=== PATIENT | male | born 1940 | race Caucasian/White ===

== ENCOUNTER 2016-11-10 11:01 | Outpatient (CLI) | payer MEDICARE, BC ==
[2016-11-10 11:42] LABS: ALBUMIN/GLOBULIN RATIO 1.5 (1.0-2.2); BUN - BLOOD UREA NITROGEN 22 mg/dL (6-20); CALCIUM 9.2 mg/dL (8.5-10.3); CARBON DIOXIDE - CO2 29 mmol/L (21-32); CHLORIDE 100 mmol/L (101-111); CHOLESTEROL 156 mg/dL; CREATININE 1.2 mg/dL (0.6-1.2); GFR - MDRD 59 (>89); GLUCOSE 106 mg/dL (70-100); HDL CHOLESTEROL 39 mg/dL; POTASSIUM 4.3 mmol/L (3.5-5.0); SODIUM 137 mmol/L (135-145); TOTAL PROTEIN 7.3 g/dL (6.7-8.2); TRIGLYCERIDES 188 mg/dL; VLDL CHOLESTEROL 38 mg/dL
== END 2016-11-10 11:02 | disposition home or self-care (01) ==
LOC: LAB 11:01
PROVIDERS: ATTEND Family Medicine
DX: E78.9 Disorder of lipoprotein metabolism, unspecified (principal); Z12.5 Encounter for screening for malignant neoplasm of prostate
CPT/HCPCS: 36415; 80053; 80061; G0103; 84153

== ENCOUNTER 2017-11-14 11:22 | Outpatient (CLI) | payer MEDICARE, BC ==
[2017-11-14 12:11] LABS: HB2 TOTAL 14.3 g/dL; HEMOGLOBIN A1C 0.53 g/dL; HEMOGLOBIN A1C % 5.5 % (4.6-6.2)
[2017-11-14 12:20] LABS: ALBUMIN 3.9 g/dL (3.2-5.5); ALBUMIN/GLOBULIN RATIO 1.2 (1.0-2.2); ALKALINE PHOSPHATASE 61 IU/L (42-121); ALT ALANINE AMINOTRANSFERASE 14 IU/L (10-60); AST ASPARTATE AMINOTRANSFERASE 22 IU/L (10-42); BILIRUBIN,TOTAL 0.7 mg/dL (0.2-1.0); BUN - BLOOD UREA NITROGEN 23 mg/dL (6-20); CARBON DIOXIDE - CO2 28 mmol/L (21-32); CHLORIDE 101 mmol/L (101-111); CHOL/HDL RATIO 3.5 (<5.0); CHOLESTEROL 123 mg/dL; CREATININE 1.4 mg/dL (0.6-1.2); GFR - MDRD 49 (>89); GLUCOSE 96 mg/dL (70-100); HDL CHOLESTEROL 35 mg/dL; LDL CHOLESTEROL,CALCULATED 61 mg/dL; LDL/HDL RATIO 1.7 (<3.6); SODIUM 135 mmol/L (135-145); TOTAL PROTEIN 7.1 g/dL (6.7-8.2); VLDL CHOLESTEROL 27 mg/dL
== END 2017-11-14 11:23 | disposition home or self-care (01) ==
LOC: LAB 11:22
PROVIDERS: ATTEND Family Medicine
DX: R73.01 Impaired fasting glucose (principal); K21.9 Gastro-esophageal reflux disease without esophagitis; E78.5 Hyperlipidemia, unspecified; Z12.5 Encounter for screening for malignant neoplasm of prostate
CPT/HCPCS: 36415; 80053; 80061; 82043; 83036; G0103; 83721; 84153

== ENCOUNTER 2017-11-28 08:10 | Outpatient (CLI) | payer MEDICARE, BC ==
[2017-11-28 13:36] LABS: BUN - BLOOD UREA NITROGEN 17 mg/dL (6-20); CALCIUM 8.9 mg/dL (8.5-10.3); CARBON DIOXIDE - CO2 28 mmol/L (21-32); CHLORIDE 104 mmol/L (101-111); CREATININE 1.2 mg/dL (0.6-1.2); GFR - MDRD 59 (>89); GLUCOSE 99 mg/dL (70-100); SODIUM 136 mmol/L (135-145)
[2017-11-28 13:46] LABS: BILIRUBIN,URINE NEGATIVE (NEGATIVE); GLUCOSE, URINE (UA) NEGATIVE (NEGATIVE); KETONES,URINE (UA) NEGATIVE (NEGATIVE); LEUKOCYTE ESTERASE, URINE NEGATIVE (NEGATIVE); NITRITE,URINE NEGATIVE (NEGATIVE); OCCULT BLOOD,URINE NEGATIVE (NEGATIVE); PROTEIN,URINE NEGATIVE (NEGATIVE); UROBILINOGEN,URINE 0.2 (NORMAL) E.U./dL (NORMAL)
[2017-11-28 13:50] LABS: THYROID STIMULATING HORMONE 5.47 uIU/mL (0.34-5.60)
[2017-11-28 14:08] LABS: BACTERIA,URINE None Seen /HPF (None Seen); CLARITY,URINE CLEAR (CLEAR); RBC,URINE 0-5 /HPF (0-5); SQUAMOUS EPITHELIAL CELL,UR NONE SEEN (<= Few)
== END 2017-11-28 08:11 | disposition home or self-care (01) ==
LOC: LAB.WCP 08:10
PROVIDERS: ATTEND Family Medicine
DX: R41.3 Other amnesia (principal); R10.32 Left lower quadrant pain
CPT/HCPCS: 36415; 80048; 81001; 81599; 82607; 83921; 84443; 86592; 87086

== ENCOUNTER 2017-12-07 14:47 | Outpatient (CLI) | payer MEDICARE, BC ==
[2017-12-07] MEDS ORDERED: IOPAMIDOL-300 100 ML VIAL ONE (15:03)
[2017-12-07] MEDS ORDERED: IOPAMIDOL-300 50 ML VIAL ONE (15:03)
[2017-12-07] MEDS ORDERED: IOPAMIDOL-300 50 ML VIAL PO ONE (16:13)
[2017-12-07] MEDS ORDERED: IOPAMIDOL-300 100 ML VIAL IVP ONE (16:15)
--- NOTE | 2017-12-07 17:06 | CT Report ---
Procedure Date: 12/07/2017 Accession Number: [id number] / [id number] Procedure: CT - Abdomen/Pelvis W/ CPT Code: FULL RESULT: EXAM: CT ABDOMEN AND PELVIS EXAM DATE: 12/07/2017 04:02 PM. CLINICAL HISTORY: Abdominal pain, left lower quadrant. Additional history: Left lower abdominal pain intermittently for 2 months. History of hernias and repairs. COMPARISONS: None. TECHNIQUE: Routine helical CT imaging was performed through the abdomen and pelvis. IV contrast: ISOVUE 300 100 mL. Enteric contrast: Yes. Reconstructions: Coronal and sagittal. Examination was obtained with Valsalva. In accordance with CT protocol optimization, one or more of the following dose reduction techniques were utilized for this exam: automated exposure control, adjustment of mA and/or KV based on patient size, or use of iterative reconstructive technique. FINDINGS: Lung Bases: No mass, consolidation or effusion. Small hiatal hernia with circumferential wall thickening of the lower esophagus and enteric contrast present within the esophagus suggesting esophagitis and gastroesophageal reflux and/or esophageal dysmotility. Partially visualized mild gynecomastia, right slightly greater than left. Liver: Normal. No masses. Gallbladder/Bile Ducts: Gallbladder is absent. No abnormal biliary ductal dilatation. Spleen: Normal. Pancreas: Mild fatty atrophy of the head and uncinate process. No evidence of mass, ductal dilatation or inflammation. Adrenal Glands: Normal. Kidneys: No masses or hydronephrosis. No definite calculi. Symmetric contrast enhancement. Maintained lobations bilaterally. Punctate left interpolar hypodensity statistically likely a cyst (3/). Peritoneal Cavity/Bowel: No free fluid or free air. Small hiatal hernia with lower esophageal findings as above. Prominent non-pathologically dilated small bowel loops throughout the abdomen without adjacent inflammatory stranding or wall thickening, possibly due to gastroenteritis or slow GI motility. Stool burden is significantly above average suggesting constipation. Severe distal colonic diverticulosis without acute diverticulitis. The appendix is normal. No abnormally enlarged lymph nodes. Pelvic Organs: Urinary bladder is unremarkable, though the right anterior portion of the urinary bladder extends towards the right fat-containing inguinal hernia, though not within the hernia. Prostate is enlarged measuring 5.4 cm transversely. Seminal vesicles are symmetric and unremarkable. Vasculature: No abdominal aortic aneurysm. Portal and hepatic veins are patent. There is mild calcific aortobiiliac atherosclerosis. Bones: No acute osseous abnormality or suspicious focal osseous lesion. Degenerative spondylitic changes present in the thoracolumbar spine, predominantly mild, with lower thoracic DISH. Mild convex right lumbar scoliosis noted. There is partial degenerative fusion of the bilateral sacroiliac joints. Other: Small fat-containing inguinal hernia, likely direct. As above, the urinary bladder approaches the right inguinal hernia but does not enter the hernia sac. No bowel-containing hernia. Postsurgical changes present at the left inguinal canal suggestive of prior hernia repair without evidence of recurrence. IMPRESSION: 1. No definite acute intra-abdominal abnormality. There is mild prominence of fluid-filled small bowel loops throughout the abdomen which could be due to gastroenteritis or slow GI motility. Stool burden is also above average suggesting constipation. 2. Severe distal colonic diverticulosis without evidence of acute diverticulitis. 3. Small hiatal hernia with findings suggestive of esophagitis and gastroesophageal reflux and/or esophageal dysmotility. 4. Small fat-containing right inguinal hernia. Findings suggestive of prior left inguinal hernia repair without evidence of recurrence. 5. Additional findings as above. RADIA
== END 2017-12-07 14:48 | disposition home or self-care (01) ==
LOC: DI 14:47
PROVIDERS: ATTEND Family Medicine
DX: R10.32 Left lower quadrant pain (principal); K57.30 Diverticulosis of large intestine without perforation or abscess without bleeding; K44.9 Diaphragmatic hernia without obstruction or gangrene; K40.90 Unilateral inguinal hernia, without obstruction or gangrene, not specified as recurrent
CPT/HCPCS: 74177

== ENCOUNTER 2017-12-07 18:07 | Emergency (ER) | payer MEDICARE, BC ==
[2017-12-07 18:27] VITALS: BP 138/73
[2017-12-07] MEDS ORDERED: HYDROcod/ACETAM 5/325 MG TABLET PO STA (18:39)
--- NOTE | 2017-12-07 18:41 | ED Physician Documentation ---
History of Present Illness - Stated complaint Stated Complaint: GLF/RIB PX - Chief complaint Chief Complaint: General - History obtained from History obtained from: Patient - History of Present Illness Timing: Today (77-year-old gentleman was in a restaurant this morning and fell and hit the edge of a flower pot or with his right low chest wall. No other injuries. He has pain of the right low chest wall. Of note he had a CT scan of his abdomen for other reasons later in the day.) Review of Systems Constitutional: denies: Fever, Chills Respiratory: denies: Dyspnea, Cough GI: denies: Nausea, Vomiting, Diarrhea PD PAST MEDICAL HISTORY - Past Medical History Cardiovascular: High cholesterol, Arrhythmia Respiratory: None Endocrine/Autoimmune: None GI: GERD, Colon polyps, Chronic diarrhea, Chronic constipation, Other : None HEENT: Chronic vision loss Psych: None Musculoskeletal: Chronic back pain Derm: None - Past Surgical History General: Colonoscopy, EGD Ortho: Rotator cuff repair - Present Medications Home Medications: Ambulatory Orders Medication Instructions Recorded Confirmed Nortriptyline [Pamelor] 20 mg PO HS 02/25/13 03/02/16 Omeprazole 40 mg PO DAILY 02/25/13 03/02/16 Simvastatin [Zocor] 40 mg PO QPM 02/25/13 03/02/16 Aspirin [Ecotrin] 81 mg PO DAILY 01/27/14 03/02/16 raNITIdine [Zantac] 300 mg PO QPM 03/01/16 03/02/16 HYDROcod/ACETAM 5/325 [Leroy 5/325] 1 - 2 ea PO Q6H PRN #15 tablet 12/07/17 - Allergies Allergies/Adverse Reactions: Allergies Allergy/AdvReac Type Severity Reaction Status Date / Time clarithromycin [From Biaxin] Allergy Unknown NAUSEA/DIAR Verified 12/07/17 18:27 [facility] PD ED PE NORMAL - Vitals Vital signs reviewed: Yes - General General: Alert and oriented X 3, No acute distress - Neck Neck: Supple, no meningeal sign, No bony TTP - Cardiac Cardiac: RRR, No murmur - Respiratory Respiratory: No respiratory distress, Clear bilaterally, Other (Last rib on the right is tender) - Abdomen Abdomen: Soft, Non tender - Neuro Neuro: Alert and oriented X 3, Normal speech Results - Vitals Vitals: Vital Signs - 24 hr 12/07/17 18:21 Temperature 36.4 C L Heart Rate 73 Respiratory 18 Rate Blood Pressure 138/73 H O2 Saturation 96 Oxygen O2 Source Room air PD MEDICAL DECISION MAKING - ED course ED course: The CT scan from earlier today was reviewed and he certainly does have a single right posterior 12th rib fracture which was not commented on in the CT read but is clear on my evaluation, therefore no further imaging here is not necessary. - Sepsis Event Vital Signs: Vital Signs - 24 hr 12/07/17 18:21 Temperature 36.4 C L Heart Rate 73 Respiratory 18 Rate Blood Pressure 138/73 H O2 Saturation 96 Oxygen O2 Source Room air Departure - Departure Disposition: Home, Self Care Clinical Impression: Rib fracture Qualifiers: Encounter type: initial encounter Rib fracture type: single rib Fracture type: closed Laterality: right Qualified Code(s): S22.31XA - Fracture of one rib, right side, initial encounter for closed fracture Condition: Good Record reviewed to determine appropriate education?: Yes Instructions: ED Fx Rib Prescriptions: HYDROcod/ACETAM 5/325 [Leroy 5/325] 1 - 2 ea PO Q6H PRN #15 tablet PRN Reason: Pain Comments: Your blood pressure was elevated today on check into the emergency department. This does not mean that you have hypertension, it is a common phenomenon to come to the emergency department and have elevated blood pressure. I recommend that you see your primary care physician within the week to have it rechecked when you are feeling better.
== END 2017-12-07 18:51 | disposition home or self-care (01) ==
LOC: ED 18:07
DX: S22.31XA Fracture of one rib, right side, initial encounter for closed fracture (principal); W01.198A Fall on same level from slipping, tripping and stumbling with subsequent striking against other object, initial encounter; Y92.511 Restaurant or cafe as the place of occurrence of the external cause; R03.0 Elevated blood-pressure reading, without diagnosis of hypertension; E78.00 Pure hypercholesterolemia, unspecified; I49.9 Cardiac arrhythmia, unspecified; K21.9 Gastro-esophageal reflux disease without esophagitis; Z86.010 Personal history of colon polyps; R10.32 Left lower quadrant pain; K57.30 Diverticulosis of large intestine without perforation or abscess without bleeding; K44.9 Diaphragmatic hernia without obstruction or gangrene; K40.90 Unilateral inguinal hernia, without obstruction or gangrene, not specified as recurrent
CPT/HCPCS: 74177; 99283; A9270; Q9967

== ENCOUNTER 2018-07-11 11:45 | Outpatient (CLI) | payer MEDICARE, BC | END 2018-07-11 11:46 | disposition home or self-care (01) | LOC: LAB.WCP 11:45 | PROVIDERS: ATTEND Family Medicine | DX: G56.90 Unspecified mononeuropathy of unspecified upper limb (principal) | CPT/HCPCS: 36415; 82607 ==

== ENCOUNTER 2019-01-22 08:00 | Outpatient (CLI) | payer MEDICARE, BC ==
[2019-01-22 18:42] LABS: BASOPHILS # (AUTO) 0.1 10^3/uL (0.0-0.1); BASOPHILS % (AUTO) 1.1 %; EOSINOPHILS # (AUTO) 0.3 10^3/uL (0.0-0.7); EOSINOPHILS % (AUTO) 6.1 %; HGB - HEMOGLOBIN 13.2 g/dL (14.0-18.0); LYMPHOCYTES # (AUTO) 1.9 10^3/uL (1.5-3.5); MEAN CORPUSCULAR HEMOGLOBIN 30.3 pg (27.0-31.0); MEAN CORPUSCULAR HGB CONC 31.8 g/dL (32.0-36.0); MEAN CORPUSCULAR VOLUME 95.4 fL (80.0-94.0); MONOCYTES # (AUTO) 0.6 10^3/uL (0.0-1.0); MONOCYTES % (AUTO) 11.3 %; NEUTROPHILS # (AUTO) 2.3 10^3/uL (1.5-6.6); NEUTROPHILS % (AUTO) 44.3 %; PLT - PLATELET COUNT 190 10^3/uL (130-450); RED BLOOD COUNT 4.35 10^6/uL (4.70-6.10); RED CELL DISTRIBUTION WIDTH 12.9 % (12.0-15.0); WHITE BLOOD COUNT 5.2 x10^3/uL (4.8-10.8)
[2019-01-22 19:08] LABS: ALBUMIN 4.4 g/dL (3.2-5.5); ALBUMIN/GLOBULIN RATIO 1.4 (1.0-2.2); ALKALINE PHOSPHATASE 59 IU/L (42-121); ALT ALANINE AMINOTRANSFERASE 18 IU/L (10-60); AST ASPARTATE AMINOTRANSFERASE 29 IU/L (10-42); BILIRUBIN,TOTAL 0.6 mg/dL (0.2-1.0); BUN - BLOOD UREA NITROGEN 27 mg/dL (6-20); CALCIUM 9.4 mg/dL (8.5-10.3); CARBON DIOXIDE - CO2 29 mmol/L (21-32); CHLORIDE 103 mmol/L (101-111); CHOL/HDL RATIO 4.1 (<5.0); CHOLESTEROL 178 mg/dL; CREATININE 1.5 mg/dL (0.6-1.2); GFR - MDRD 45 (>89); GLUCOSE 87 mg/dL (70-100); HDL CHOLESTEROL 43 mg/dL; LDL CHOLESTEROL,CALCULATED 111 mg/dL; LDL/HDL RATIO 2.6 (<3.6); SODIUM 139 mmol/L (135-145); TOTAL PROTEIN 7.5 g/dL (6.7-8.2); VLDL CHOLESTEROL 24 mg/dL
== END 2019-01-22 23:59 | disposition home or self-care (01) ==
LOC: LAB.WCP 08:00
PROVIDERS: ATTEND Family Medicine
DX: R73.01 Impaired fasting glucose (principal); E78.9 Disorder of lipoprotein metabolism, unspecified; K22.70 Barrett's esophagus without dysplasia
CPT/HCPCS: 36415; 80053; 80061; 83721; 85025

== ENCOUNTER 2019-01-30 08:00 | Outpatient (CLI) | payer MEDICARE, BC ==
[2019-01-30 18:33] LABS: CALCIUM 9.4 mg/dL (8.5-10.3); CREATININE 1.3 mg/dL (0.6-1.2)
== END 2019-01-30 23:59 | disposition home or self-care (01) ==
LOC: LAB.WCP 08:00
PROVIDERS: ATTEND Family Medicine
DX: R41.3 Other amnesia (principal); G62.9 Polyneuropathy, unspecified; D51.9 Vitamin B12 deficiency anemia, unspecified
CPT/HCPCS: 36415; 80048; 82607; 84443

== ENCOUNTER 2020-01-17 10:49 | Outpatient (CLI) | payer MEDICARE, BC ==
[2020-01-17 11:05] LABS: BASOPHILS # (AUTO) 0.1 10^3/uL (0.0-0.1); EOSINOPHILS # (AUTO) 0.3 10^3/uL (0.0-0.7); EOSINOPHILS % (AUTO) 6.6 %; HGB - HEMOGLOBIN 13.3 g/dL (14.0-18.0); LYMPHOCYTES # (AUTO) 1.9 10^3/uL (1.5-3.5); LYMPHOCYTES % (AUTO) 35.7 %; MEAN CORPUSCULAR HGB CONC 32.8 g/dL (32.0-36.0); MEAN CORPUSCULAR VOLUME 94.6 fL (80.0-94.0); MEAN PLATELET VOLUME 9.7 fL (7.4-11.4); MONOCYTES # (AUTO) 0.5 10^3/uL (0.0-1.0); MONOCYTES % (AUTO) 8.7 %; NEUTROPHILS # (AUTO) 2.5 10^3/uL (1.5-6.6); NEUTROPHILS % (AUTO) 47.8 %; PLT - PLATELET COUNT 175 10^3/uL (130-450); RED BLOOD COUNT 4.29 10^6/uL (4.70-6.10); RED CELL DISTRIBUTION WIDTH 12.6 % (12.0-15.0); WHITE BLOOD COUNT 5.2 x10^3/uL (4.8-10.8)
[2020-01-17 11:39] LABS: % IRON SATURATION 21 % (20-50); ALBUMIN 4.3 g/dL (3.2-5.5); ALBUMIN/GLOBULIN RATIO 1.5 (1.0-2.2); ALKALINE PHOSPHATASE 57 IU/L (42-121); ALT ALANINE AMINOTRANSFERASE 16 IU/L (10-60); AST ASPARTATE AMINOTRANSFERASE 24 IU/L (10-42); BILIRUBIN,TOTAL 0.6 mg/dL (0.2-1.0); BUN - BLOOD UREA NITROGEN 20 mg/dL (6-20); CALCIUM 8.9 mg/dL (8.5-10.3); CARBON DIOXIDE - CO2 27 mmol/L (21-32); CHLORIDE 99 mmol/L (101-111); CHOL/HDL RATIO 3.7 (<5.0); CHOLESTEROL 166 mg/dL; CREATININE 1.4 mg/dL (0.6-1.2); GLUCOSE 104 mg/dL (70-100); HDL CHOLESTEROL 45 mg/dL; IRON 69 ug/dL (45-182); LDL CHOLESTEROL,CALCULATED 101 mg/dL; LDL/HDL RATIO 2.2 (<3.6); SODIUM 136 mmol/L (135-145); TOTAL IRON BINDING CAPACITY 333 ug/dL (250-450); TOTAL PROTEIN 7.2 g/dL (6.7-8.2); TRANSFERRIN 238 mg/dL (180-329); VLDL CHOLESTEROL 20 mg/dL
[2020-01-17 11:50] LABS: FERRITIN 60.4 ng/mL (23.9-336.2)
[2020-01-17 11:53] LABS: FOLATE 11.44 ng/mL (5.90 - >24.8)
[2020-01-17 12:17] LABS: HEMOGLOBIN A1c% 5.7 % (4.27-6.07)
== END 2020-01-17 10:50 | disposition home or self-care (01) ==
LOC: LAB 10:49
PROVIDERS: ATTEND Family Medicine
DX: E78.5 Hyperlipidemia, unspecified (principal); R73.01 Impaired fasting glucose; D64.9 Anemia, unspecified; D51.9 Vitamin B12 deficiency anemia, unspecified; I45.9 Conduction disorder, unspecified
CPT/HCPCS: 36415; 80053; 80061; 82607; 82728; 82746; 83036; 83540; 83721; 84443; 84466; 85025

== ENCOUNTER 2020-03-13 07:40 | Day surgery (SDC) | payer MEDICARE, BC ==
[2020-03-13] MEDS ORDERED: LACTATED RINGERS 1,000 ML IV ONE ×2 (07:52→09:27)
[2020-03-13] MEDS ORDERED: ONDANSETRON 4 MG/2 ML VIAL ONE (08:11)
[2020-03-13] MEDS ORDERED: fentaNYL 250 MCG/5 ML VIAL IVP ONE (08:33)
[2020-03-13] MEDS ORDERED: MIDAZOLAM 2 MG/2 ML VIAL IVP ONE (08:33)
[2020-03-13 09:57] VITALS: BP 113/70
== END 2020-03-13 07:41 | disposition home or self-care (01) ==
LOC: SDS 07:40
PROVIDERS: ATTEND Surgery
DX: R10.31 Right lower quadrant pain (principal); K57.30 Diverticulosis of large intestine without perforation or abscess without bleeding; D64.9 Anemia, unspecified; M54.9 Dorsalgia, unspecified; K21.9 Gastro-esophageal reflux disease without esophagitis
CPT/HCPCS: 45378; J3010; J7120

== ENCOUNTER 2021-08-06 08:00 | Outpatient (CLI) | payer MEDICARE, BC ==
[2021-08-06 16:02] LABS: BASOPHILS # (AUTO) 0.1 10^3/uL (0.0-0.1); BASOPHILS % (AUTO) 1.1 %; EOSINOPHILS # (AUTO) 0.2 10^3/uL (0.0-0.7); EOSINOPHILS % (AUTO) 3.9 %; HCT - HEMATOCRIT 39.5 % (42.0-52.0); HGB - HEMOGLOBIN 12.7 g/dL (14.0-18.0); LYMPHOCYTES # (AUTO) 1.7 10^3/uL (1.5-3.5); LYMPHOCYTES % (AUTO) 30.4 %; MEAN CORPUSCULAR HGB CONC 32.2 g/dL (32.0-36.0); MEAN CORPUSCULAR VOLUME 93.2 fL (80.0-94.0); MONOCYTES # (AUTO) 0.6 10^3/uL (0.0-1.0); MONOCYTES % (AUTO) 10.3 %; NEUTROPHILS % (AUTO) 54.1 %; PLT - PLATELET COUNT 182 10^3/uL (130-450); RED BLOOD COUNT 4.24 10^6/uL (4.70-6.10); RED CELL DISTRIBUTION WIDTH 13.4 % (12.0-15.0); WHITE BLOOD COUNT 5.6 x10^3/uL (4.8-10.8)
[2021-08-06 16:28] LABS: THYROID STIMULATING HORMONE 4.38 uIU/mL (0.34-5.60)
== END 2021-08-06 23:59 ==
LOC: LAB.R 08:00
PROVIDERS: ATTEND Internal Medicine
DX: N40.0 Benign prostatic hyperplasia without lower urinary tract symptoms (principal); R53.83 Other fatigue; E53.8 Deficiency of other specified B group vitamins
CPT/HCPCS: 82607; 84443; 85025

== ENCOUNTER 2021-10-05 08:00 | Outpatient (CLI) | payer MEDICARE, BC ==
--- NOTE | 2021-10-05 18:25 | XRAY Report ---
PROCEDURE: Foot 2 View LT INDICATIONS: GOUT TECHNIQUE: 2 views of the foot were acquired. COMPARISON: None FINDINGS: Bones: No acute fractures or dislocations. Moderate degenerative changes of the first metatarsophala ngeal joint. Mild overlying soft tissue prominence. There are mild degenerative changes of the second metatarsophalangeal joint with subchondral lucency at the head of the second metatarsal. There is al so lateral subluxation of the left great toe distal phalanx. Subchondral lucencies noted at the head of the first toe proximal phalanx. Moderate-severe degenerative changes of the first tarsometatarsal joint. Degenerative changes of the dorsal midfoot. Small plantar calcaneal enthesophyte. No suspiciou s bony lesions. Soft tissues: No tibiotalar joint effusion. Achilles tendon appears normal. IMPRESSION: 1. Left foot without acute fracture or dislocation. 2. Degenerative changes of the first and second metatarsophalangeal joints and first interphalangeal joint with small subchondral lucencies described above. Findings may represent degenerative subchondr al cystic changes. However, osseous erosions from an inflammatory arthropathy may have a similar appe arance given reported history of gout. 3. Left midfoot osteoarthrosis. 4. Small plantar calcaneal enthesophyte. Reviewed by: Walt Long MD on 10/05/2021 6:24 PM PDT Approved by: Walt Long MD on 10/05/2021 6:24 PM PDT Station ID: [id number]
== END 2021-10-05 23:59 | disposition home or self-care (01) ==
LOC: DI.N 08:00
PROVIDERS: ATTEND Nurse Practitioner
DX: M10.9 Gout, unspecified (principal); M19.072 Primary osteoarthritis, left ankle and foot; M77.32 Calcaneal spur, left foot

== ENCOUNTER 2022-09-15 11:44 | Outpatient (CLI) | payer MEDICARE, BC ==
--- NOTE | 2022-09-15 15:11 | XRAY Report ---
PROCEDURE: Hip w/Pelvis 2-3V LT INDICATIONS: PX IN LT HIP TECHNIQUE: AP pelvis with lateral view(s) of the left hip(s). COMPARISON: None. FINDINGS: Bones: No fractures or dislocations. No suspicious bony lesions. Moderate bilateral hip arthritic change. Periarticular osteophytes are present. Degenerative changes are present within the lower lum bar spine most severe at L5-S1. Soft tissues: No suspicious soft tissue calcifications or masses. IMPRESSION: Bilateral hip arthritic change. Reviewed by: Jaymie Nicole MD on 09/15/2022 3:10 PM PDT Approved by: Jaymie Nicole MD on 09/15/2022 3:10 PM PDT Station ID: [id number]
== END 2022-09-15 11:45 | disposition home or self-care (01) ==
LOC: DI 11:44
PROVIDERS: ATTEND Internal Medicine
DX: M16.0 Bilateral primary osteoarthritis of hip (principal)

== ENCOUNTER 2022-11-10 10:45 | Outpatient (CLI) | payer MEDICARE, BC ==
--- NOTE | 2022-11-11 09:45 | Mammography Report ---
MALE BILATERAL DIGITAL DIAGNOSTIC MAMMOGRAM 3D/2D WITH CAUDOCRANIAL: 11/10/2022 CLINICAL: Baseline exam. Focal right breast pain. Comparison CT abdomen and pelvis 12/07/2017. There is a benign irregular area of fibroglandular tissue in the right breast central to the nipple i n the retroareolar region. This correlates to the area of reported pain. There is a benign irregular area of fibroglandular tissue in the left breast central to the nipple in the retroareolar region. No other significant masses or calcifications are seen in either breast. This was seen dating back to 2018. IMPRESSION: BENIGN There is no mammographic evidence of malignancy. Asymmetric right breast gynecomastia is benign. Exam findings were conveyed to the patient. Patient is advised to monitor for significant change. Cli nical follow-up is recommended. This exam was interpreted at Station ID: [id number]. NOTE: For mammograms, a report in lay terms will be sent to the patient. Approximately 15% of breast malignancies will not be visualized mammographically. In the management of a palpable breast mass, a negative mammogram must not discourage biopsy of a clinically suspicious lesion. Electronically Signed By: Sen Worthy M.D. slc/:11/10/2022 11:28:17 ACR BI-RADS Category 2: Benign Finding(s) 3342F PARENCHYMAL PATTERN: (F) - The breast(s) demonstrate(s) diffuse fatty replacement. BI-RADS CATEGORY: (2) - 2 Unspecified - other recall n/a LATERALITY: (B)
== END 2022-11-10 10:46 | disposition home or self-care (01) ==
LOC: DI 10:45
PROVIDERS: ATTEND Internal Medicine
DX: N64.4 Mastodynia (principal); N62 Hypertrophy of breast

== ENCOUNTER 2023-07-23 13:32 | Outpatient (CLI) | payer MEDICARE, OTHER ==
--- NOTE | 2023-07-23 21:29 | Ultrasound Report ---
PROCEDURE: Arterial Duplex Lwr Ext BL INDICATIONS: NUMBNESS OF FOOT TECHNIQUE: Color and pulse Doppler interrogation was performed of both lower extremity arterial systems, with im age documentation. COMPARISON: None FINDINGS: Right lower extremity: Common femoral artery: 63 cm/sec, with triphasic flow. Deep femoral artery: 46 cm/sec, with triphasic flow. Proximal superficial femoral artery: 83 cm/sec, with triphasic flow. Mid superficial femoral artery: 91 cm/sec, with triphasic flow. Distal superficial femoral artery: 69 cm/sec, with triphasic flow. Popliteal artery: 53 cm/sec, with triphasic flow. Posterior tibial artery: 100 cm/sec, with biphasic flow. Anterior tibial artery/dorsalis pedis: 89/100 cm/sec, with triphasic/triphasic flow. Steen-scale imaging description: Scattered atherosclerotic plaque, notably in the common femoral nuvia ry and popliteal artery. Left lower extremity: Common femoral artery: 59 cm/sec, with triphasic flow. Deep femoral artery: 40 cm/sec, with triphasic flow. Proximal superficial femoral artery: 74 cm/sec, with triphasic flow. Mid superficial femoral artery: 60 cm/sec, with triphasic flow. Distal superficial femoral artery: 70 cm/sec, with triphasic flow. Popliteal artery: 57 cm/sec, with triphasic flow. Posterior tibial artery: 76 cm/sec, with triphasic flow. Anterior tibial artery/dorsalis pedis: 93/97 cm/sec, with triphasic/triphasic flow. Steen-scale imaging description: Scattered atherosclerotic plaque, notably in the common femoral nvuia ry and popliteal artery. IMPRESSION: Normal multiphasic waveforms in the bilateral lower extremity arterial vasculature with no velocity s hift to suggest a hemodynamically significant stenosis. Reviewed by: Jessica Alves MD on 07/23/2023 9:27 PM PDT Approved by: Jessica Alves MD on 07/23/2023 9:27 PM PDT Station ID: [id number]
== END 2023-07-23 13:33 | disposition home or self-care (01) ==
LOC: DI 13:32
PROVIDERS: ATTEND Internal Medicine
DX: R20.0 Anesthesia of skin (principal)
CPT/HCPCS: 93925

== ENCOUNTER 2023-10-01 19:52 | Inpatient (IN) | payer MEDICARE ==
[2023-10-01 20:48] LABS: BASOPHILS # (AUTO) 0.1 10^3/uL (0.0-0.1); BASOPHILS % (AUTO) 0.5 %; EOSINOPHILS # (AUTO) 0.3 10^3/uL (0.0-0.7); EOSINOPHILS % (AUTO) 2.6 %; HCT - HEMATOCRIT 36.8 % (42.0-52.0); HGB - HEMOGLOBIN 11.8 g/dL (14.0-18.0); LYMPHOCYTES # (AUTO) 2.2 10^3/uL (1.5-3.5); LYMPHOCYTES % (AUTO) 23.1 %; MEAN CORPUSCULAR HEMOGLOBIN 30.3 pg (27.0-31.0); MEAN CORPUSCULAR HGB CONC 32.1 g/dL (32.0-36.0); MEAN CORPUSCULAR VOLUME 94.4 fL (80.0-94.0); MEAN PLATELET VOLUME 9.2 fL (7.4-11.4); MONOCYTES # (AUTO) 0.7 10^3/uL (0.0-1.0); NEUTROPHILS # (AUTO) 6.4 10^3/uL (1.5-6.6); NEUTROPHILS % (AUTO) 66.4 %; PLT - PLATELET COUNT 163 10^3/uL (130-450); RED CELL DISTRIBUTION WIDTH 12.5 % (12.0-15.0); WHITE BLOOD COUNT 9.6 x10^3/uL (4.8-10.8)
[2023-10-01] MEDS: SODIUM CHLORIDE 0.9% 1,000 ML IV STA (20:54)
[2023-10-01] MEDS: HYDROmorphone 1 MG/ML CARPUJECT IVP STA (20:54)
[2023-10-01] MEDS: ONDANSETRON 4 MG/2 ML VIAL IVP STA (20:56)
--- NOTE | 2023-10-01 21:02 | XRAY Report ---
PROCEDURE: Hand 3+V LT INDICATIONS: fall/injury/swelling/pain TECHNIQUE: 3 views of the hand(s) acquired. COMPARISON: None. FINDINGS: Bones: No fractures or dislocations. No suspicious bony lesions. Moderate degenerative osteoarthrit ic change at the inner phalangeal joints and at the first carpal-metacarpal articulation and2 also at the distal scaphoid as it articulates against the trapezium. Soft tissues: No suspicious soft tissue calcifications or masses. IMPRESSION: No acute bony abnormality. Moderately severe degenerative osteoarthritis but no fracture or dislocation found. Reviewed by: Gucci Randall MD on 10/01/2023 9:01 PM PDT Approved by: Gucci Randall MD on 10/01/2023 9:01 PM PDT Station ID: [id number]
--- NOTE | 2023-10-01 21:04 | XRAY Report ---
PROCEDURE: Hip w/Pelvis 2-3V LT INDICATIONS: fall/pain L hip TECHNIQUE: 2 views of the hip were acquired. COMPARISON: None. FINDINGS: Bones: There is a subcapital left femoral neck fracture, mildly angulated at the fracture plane.. N o suspicious bony lesions. Soft tissues: No suspicious soft tissue calcifications or masses. IMPRESSION: Acute subcapital left femoral neck fracture with mild associated angulation abnormality. No dislocati on. Reviewed by: Gucci Randall MD on 10/01/2023 9:02 PM PDT Approved by: Gucci Randall MD on 10/01/2023 9:02 PM PDT Station ID: [id number]
[2023-10-01 21:05] LABS: ALBUMIN 4.3 g/dL (3.2-5.5); ALBUMIN/GLOBULIN RATIO 1.6 (1.0-2.2); BILIRUBIN,TOTAL 0.3 mg/dL (0.2-1.0); CALCIUM 9.4 mg/dL (8.5-10.3); CREATININE 1.3 mg/dL (0.6-1.3); POTASSIUM 3.7 mmol/L (3.5-4.5)
[2023-10-01 21:08] LABS: PT - PROTHROMBIN TIME 10.9 secs (9.9-12.6)
--- NOTE | 2023-10-01 21:23 | ED Physician Documentation ---
PD HPI LOWER EXT INJURY - Stated complaint Stated Complaint: GLF/L HIP PX - Chief complaint Chief Complaint: Trauma Ext - History obtained from History obtained from: Patient, Family - Additional information Additional information: The patient comes to the emergency department chief complaint of left hip pain after fall. He was at home and standing up, turning around when he caught his foot and lost his balance, falling onto his left side. He states he hit a hard surface floor in his house and immediately felt some left hip pain. He states he did not hit his head and denies any neck or back pain. His only other complaint is a bruise on his left hand. The patient is not anticoagulated. He has no history of cardiac issues. He denies any prior injury to this hip. He has a little bit of neuropathy in his feet, he states, but he is not a diabetic. No other complaints at this time. PD PAST MEDICAL HISTORY - Past Medical History Cardiovascular: High cholesterol Respiratory: None Neuro: None Endocrine/Autoimmune: HyPOthyroidism GI: GERD, Diverticulitis : Incontinence HEENT: Dental implants Psych: None Musculoskeletal: Osteoarthritis Derm: None - Past Surgical History Past Surgical History: Yes General: Colonoscopy, EGD, Other Ortho: Rotator cuff repair - Present Medications Home Medications: Ambulatory Orders Medication Instructions Recorded Confirmed Nortriptyline [Pamelor] 20 mg PO HS 02/25/13 12/21/21 Omeprazole 40 mg PO DAILY 02/25/13 12/21/21 Simvastatin [Zocor] 40 mg PO QPM 02/25/13 12/21/21 Aspirin [Ecotrin] 81 mg PO DAILY 01/27/14 12/21/21 Tamsulosin [Flomax] 1 cap PO DAILY 12/21/21 12/21/21 allopurinoL [Zyloprim] 1 tab PO DAILY 12/21/21 12/21/21 traZODone [Desyrel] 1 tab PO DAILY 12/21/21 12/21/21 - Allergies Allergies/Adverse Reactions: Allergies Allergy/AdvReac Type Severity Reaction Status Date / Time clarithromycin [From Biaxin] Allergy Unknown NAUSEA/DIAR Verified 10/01/23 19:57 ALEK - Social History Does the pt smoke?: No Smoking Status: Never smoker Does the pt drink ETOH?: No Does the pt have substance abuse?: No - Immunizations Immunizations are current?: Yes - POLST Patient has POLST: No PD ED PE NORMAL - Vitals Vital signs reviewed: Yes - General General: Alert and oriented X 3, No acute distress, Well developed/nourished - HEENT HEENT: Atraumatic, PERRL, EOMI, Moist mucous membranes - Neck Neck: Supple, no meningeal sign, No bony TTP - Cardiac Cardiac: RRR, No murmur - Respiratory Respiratory: No respiratory distress, Clear bilaterally - Abdomen Abdomen: Soft, Non tender, Non distended - Back Back: No spinal TTP - Derm Derm: Normal color, Warm and dry, No rash, Other (Contusion with some edema on left hand dorsum over fourth and fifth MCP joints. Mild tenderness palpation in the same region.) - Extremities Extremities: No deformity, No edema, Other (Left leg is shortened and internally rotated. Tenderness palpation over left lateral hip. No palpable step-off or deformity.) - Neuro Neuro: Alert and oriented X 3 - Psych Psych: Normal mood, Normal affect Results - Vitals Vitals: Vital Signs - 24 hr 10/01/23 10/01/23 19:55 21:03 Temperature 37.1 C Heart Rate 75 67 Respiratory 16 16 Rate Blood Pressure 137/79 H 145/92 H O2 Saturation 96 95 Oxygen O2 Source Room air - Labs Labs: Laboratory Tests 10/01/23 10/01/23 10/01/23 20:42 20:42 20:57 WBC 9.6 RBC 3.90 L Hgb 11.8 L Hct 36.8 L MCV 94.4 H MCH 30.3 MCHC 32.1 RDW 12.5 Plt Count 163 MPV 9.2 Neut # (Auto) 6.4 Lymph # (Auto) 2.2 [place] # (Auto) 0.7 Eos # (Auto) 0.3 Baso # (Auto) 0.1 Absolute Nucleated RBC 0.00 Nucleated RBC % 0.0 PT 10.9 INR 1.0 Sodium 138 Potassium 3.7 Chloride 103 Carbon Dioxide 28 Anion Gap 7.0 BUN 21 H Creatinine 1.3 Estimated GFR (MDRD) 53 L Glucose 135 H Calcium 9.4 Total Bilirubin 0.3 AST 20 ALT 13 Alkaline Phosphatase 62 Total Protein 7.0 Albumin 4.3 Globulin 2.7 Albumin/Globulin Ratio 1.6 Lipase 20 - Rads (name of study) Left hip pelvis x-ray series Relevant Findings:: Final report received, See rad report (Subcapital femoral neck fracture minimal displacement) Left hand x-ray series Relevant Findings:: Final report received, See rad report (Negative) PD Medical Decision Making - ED course Complexity details: reviewed results, re-evaluated patient, considered differential, d/w patient, d/w family ED course: The patient was worked up with left hip and pelvis x-ray series initially and found to have a hip fracture. I did add labs and EKG for medical clearance and in anticipation of admission. I spoke with Dr. Walter who is on-call for orthopedics, and he stated that the patient would need surgery and that orthopedics would see the patient in the morning. He did state he is going off service after this call night and so he would pass the information on to Dr. Young who would see the patient in the morning. I did speak with the telehospitalist on-call who agreed to admit the patient to her service. The patient has been informed of the x-ray findings and of the plan and is agreeable, as is his . He is feeling much better after Zofran, Dilaudid, and IV fluids. Departure - Departure Disposition: [facility] DC/Xfer Clinical Impression: Hip fracture Qualifiers: Encounter type: initial encounter Fracture type: closed Laterality: left Qu alified Code(s): S72.002A - Fracture of unspecified part of neck of left femur, initial encounter for closed fracture Condition: Stable Forms: PCP List
[2023-10-01] MEDS ORDERED: SODIUM CHLORIDE FLUSH 0.9% 10 ML SYRINGE IVP PRN (21:35)
[2023-10-01] MEDS ORDERED: oxyCODONE 5 MG TABLET PO PRN (21:35)
--- NOTE | 2023-10-01 22:01 | HISTORY & PHYSICAL EXAMINATION ---
Chief Complaint - Chief Complaint Chief Complaint: hip pain History of Present Illness - History of Present Illness HPI Comment/Other: Mr. Painting is an 82 you gentleman with history of hyperlipidemia, idiopathic lower extremity neuropathy, gait imbalance. He presented for evaluation of left hip pain after a ground level fall. He denied any precipitating events, lightheadedness,dizziness. He just lost his balance and fell. He has had increasing falls over the past six months which he contributes to his neuropathy. He explained the etiology of his neuropathy is unknown. He follows with PT and Neurology. In the ED workup revealed Left femoral neck fracture. orthopedic surgery was consulted and agreed to see patient. My service was asked to admit for observation and surgical clearance. I performed this visit using real-time tele-health tools, including face to face evaluation with live video. patient's consent was obtained. History - Past Medical History Cardiovascular: reports: High cholesterol Respiratory: reports: None Neuro: reports: None Endocrine/Autoimmune: reports: HyPOthyroidism GI: reports: GERD, Diverticulitis : reports: Incontinence HEENT: reports: Dental implants Psych: reports: None Musculoskeletal: reports: Osteoarthritis Derm: reports: None MRSA Hx?: No - Past Surgical History General: reports: Colonoscopy, EGD, Other Ortho: reports: Rotator cuff repair - POLST Patient has POLST: No Meds/Allgy - Home Medications Home Medications: Ambulatory Orders Medication Instructions Recorded Confirmed Nortriptyline [Pamelor] 20 mg PO HS 02/25/13 12/21/21 Omeprazole 40 mg PO DAILY 02/25/13 12/21/21 Tamsulosin [Flomax] 1 cap PO DAILY 12/21/21 12/21/21 allopurinoL [Zyloprim] 1 tab PO DAILY 12/21/21 12/21/21 traZODone [Desyrel] 1 tab PO DAILY 12/21/21 12/21/21 Cetirizine HCl [Allergy] 10 mg PO DAILY 10/01/23 10/01/23 Cyanocobalamin (Vitamin B-12) 1,000 mcg IJ ONCE 10/01/23 10/01/23 [Dodex] Multivitamin 1 each PO DAILY 10/01/23 10/01/23 Simvastatin [Zocor] 20 mg PO HS 10/01/23 10/01/23 - Allergies Allergies/Adverse Reactions: Allergies Allergy/AdvReac Type Severity Reaction Status Date / Time clarithromycin [From Biaxin] Allergy Unknown NAUSEA/DIAR Verified 10/01/23 19:57 ALEK Review of Systems - Musculoskeletal Musculoskeletal: reports: Other (hip pain Imbalance) - Neurological Neurological: reports: Other (neuropathy) - All Other Systems All Other Systems: reports: Reviewed and negative Exam - Vital Signs Reviewed Vital Signs: Yes Vital Signs: Vital Signs x48h Temp Pulse Resp BP Pulse Ox 10/01/23 21:03 67 16 145/92 H 95 10/01/23 19:55 37.1 C 75 16 137/79 H 96 - Physical Exam General Appearance: positive: No acute distress, Alert Respiratory: positive: Chest non-tender, No respiratory distress, Breath sounds nml Cardiovascular: positive: Regular rate & rhythm, No murmur, No gallop Skin: positive: Color nml, No rash. negative: Cyanosis, Diaphoresis Extremities: positive: Other (L hip shorted, slight malrotation) Neurologic/Psychiatric: positive: Oriented x3, Mood/affect nml Conclusion/Plan - Problem List (1) Hip fracture Conclusion/Plan: - Hip xray reviewed independently -Orthopedic surgery consulted, plan to proceed with surgical intervention -serial neuromuscular evaluation preoperatively -conservative pain management: scheudle toradol q8h x 2 doses. PRN tylenol, oxycodone, and morphine -postop physcial therapy consultation may be warranted -incentive spirometry postop to prevent atelectasis and postop pneumonia -PreOP clearance: No known history of CAD, DM or CKD places at a RCRI <1 low risk of adverse postoperative cardiac event. -however abnormal EKG noted on admission, likely benign due to age will proceed with further evaluation for completeness -at this time due to low risk profile will clear patient for surgery,if cardiac workup produces concerning findings. cardiology consultation is warranted. Qualifiers: Encounter type: initial encounter Fracture type: closed Laterality: left Qualified Code(s): S72.002A - Fracture of unspecified part of neck of left femur, initial encounter for closed fracture (2) Abnormal EKG Conclusion/Plan: -noted to have RBBB and L fasicular block, no CAD history or h/o hypertension -will obtain pBNP and ECHO -monitor on telemetry -continue with management of hyperlipidemia (3) Hyperlipidemia Conclusion/Plan: -will resume statin as tolerated - Lab Results Fish Bones: 10/01/23 20:42 10/01/23 20:42 Telemedicine Consult Details - Provider Location & Consult Time Telemedicine consultation conducted via videoconferencing?: Yes
[2023-10-01] MEDS: KETOROLAC 15 MG/ML VIAL IVP SCH (22:43)
[2023-10-01] MEDS: SODIUM CHLORIDE 0.9% 1,000 ML IV SCH (22:44)
[2023-10-01] MEDS: SODIUM CHLORIDE FLUSH 0.9% 10 ML SYRINGE IVP SCH (22:44)
[2023-10-01] MEDS: ONDANSETRON 4 MG/2 ML VIAL IVP PRN (23:13)
[2023-10-02] MEDS: PROMETHAZINE INJ 12.5 MG in SODIUM CHLORIDE 0.9% 50 ML IV PRN (00:06)
[2023-10-02] MEDS: MORPHINE 2 MG/ML CARPUJECT IVP PRN (00:42)
[2023-10-02] MEDS ORDERED: HYDROmorphone 0.5 MG/0.5 ML SYRINGE IVP PRN ×2 (03:16→11:35)
[2023-10-02] MEDS: PANTOPRAZOLE 40 MG TABLET PO SCH (06:21)
[2023-10-02] MEDS ORDERED: hydrOXYzine PAMOATE 25 MG CAPSULE PO PRN (07:13)
--- NOTE | 2023-10-02 07:15 | PROVIDER PROGRESS NOTE ---
Subjective - Prog Note Date Prog Note Date: 10/02/23 Prog Note Time: 07:14 - Subjective Subjective: Patient was admitted last evening due to fracture of his left hip. Overnight he did have issues with ongoing severe pain however when he is narcotics were switched to IV Dilaudid his pain has since significantly improved to a tolerable 4 out of 10. He has had some urinary retention with bladder scan indicating 695 mL retention that resolved with Hess catheter insertion. This morning he denies having any chest pain, shortness of breath, cough, orthopnea, PND, nausea, vomiting, melena, fevers or chills. Denies any history of cardiac issues aside from a known chronic right bundle branch block on EKG. He indicates he has had that for some time and underwent a stress test 10 to 15 years ago due to this finding, with the stress test being negative. He denies any exertional anginal symptoms and has no history of stroke/TIA or kidney issues. Current Medications - Current Medications Current Medications: Acetaminophen (Acetaminophen 325 Mg Tablet) 650 mg PO Q4HR PRN PRN Reason: Pain 1 to 4, or Fever Allopurinol (Allopurinol 100 Mg Tablet) 100 mg PO DAILY SH[facility]UTI Atorvastatin Calcium (Atorvastatin 10 Mg Tablet) 10 mg PO HS SH[facility]I Cetirizine HCl (Cetirizine 10 Mg Tablet) 10 mg PO DAILY SH[facility]I Hydromorphone HCl (Hydromorphone 0.5 Mg/0.5 Ml Syringe) 0.5 mg IVP Q4H PRN PRN Reason: Severe Pain (Level 7-10) Hydroxyzine Pamoate (Hydroxyzine Pamoate 25 Mg Capsule) 25 mg PO Q8HR PRN PRN Reason: Anxiety Sodium Chloride (Normal Saline 0.9%) 1,000 mls @ 75 mls/hr IV .[id number] [facility] Stop: 10/02/23 21:59 Last Admin: 10/01/23 22:44 Dose: 75 mls/hr Promethazine HCl 12.5 mg/ (Sodium Chloride) 50.5 mls @ 100 mls/hr IV Q6H PRN PRN Reason: Nausea / Vomiting Last Infusion: 10/02/23 00:37 Dose: Infused Morphine Sulfate (Morphine 2 Mg/Ml Carpuject) 2 mg IVP Q4HR PRN PRN Reason: Pain 8 to 10 Last Admin: 10/02/23 02:53 Dose: 2 mg Ondansetron HCl (Ondansetron 4 Mg/2 Ml Vial) 4 mg IVP Q6HR PRN PRN Reason: Nausea / Vomiting Last Admin: 10/01/23 23:13 Dose: 4 mg Oxycodone HCl (Oxycodone 5 Mg Tablet) 5 mg PO Q4HR PRN PRN Reason: Pain 5 to 7 Pantoprazole Sodium (Pantoprazole 40 Mg Tablet) [facility] Last Admin: 10/02/23 06:21 Dose: 40 mg Patient Own Med ( (Nortriptyline 20mg)) 20 each PO [facility] Sodium Chloride (Sodium Chloride Flush 0.9% 10 Ml Syringe) 10 ml IVP PRN PRN PRN Reason: NEEDED PER PROVIDER ORDERS Sodium Chloride (Sodium Chloride Flush 0.9% 10 Ml Syringe) 10 ml IVP 0100,0900,1700 [facility] Last Admin: 10/01/23 22:44 Dose: 10 ml Tamsulosin HCl (Tamsulosin 0.4 Mg Capsule) 0.4 mg PO DAILY [facility] Trazodone HCl (Trazodone 50 Mg Tablet) 50 mg PO [facility] Objective - Vital Signs/Intake & Output Reviewed Vital Signs: Yes Vital Signs: Vital Signs x48h Temp Pulse Resp BP Pulse Ox 10/02/23 04:25 36.6 C 74 20 115/78 97 Intake & Output: Intake & Output 09/29/23 09/30/23 10/01/23 10/02/23 23:59 23:59 23:59 23:59 Intake Total 1100 50.5 Output Total 200 950 Balance 900 -899.5 - Objective General Appearance: positive: No acute distress, Alert Eyes Bilateral: positive: Normal inspection, PERRL, EOMI ENT: positive: ENT inspection nml, No signs of dehydration Neck: positive: Nml inspection, Thyroid nml, No JVD, Trachea midline Respiratory: positive: No respiratory distress, Breath sounds nml. negative: Wheezes, Rales, Rhonchi Cardiovascular: positive: Regular rate & rhythm, No murmur, No gallop Peripheral Pulses: 2+ Dorsalis pedis (R), 2+ Dorsalis pedis (L) Abdomen: positive: Non-tender, No organomegaly, Nml bowel sounds, No distention Skin: positive: Color nml, No rash, Warm, Dry Extremities: positive: Other (Left leg shorter and externally rotated compared to right leg. Warm and well perfused.) Neurologic/Psychiatric: positive: Oriented x3, CN's nml (2-12), Motor nml - Lab Results Fish Bones: 10/01/23 20:42 10/01/23 20:42 Other Labs: Lab Results x24hrs 10/01/23 10/01/23 10/01/23 Range/Units 20:57 20:42 20:42 WBC 9.6 (4.8-10.8) x10^3/uL RBC 3.90 L (4.70-6.10) 10^6/uL Hgb 11.8 L (14.0-18.0) g/dL Hct 36.8 L (42.0-52.0) % MCV 94.4 H (80.0-94.0) fL MCH 30.3 (27.0-31.0) pg MCHC 32.1 (32.0-36.0) g/dL RDW 12.5 (12.0-15.0) % Plt Count 163 (130-450) 10^3/uL MPV 9.2 (7.4-11.4) fL Neut # (Auto) 6.4 (1.5-6.6) 10^3/uL Lymph # (Auto) 2.2 (1.5-3.5) 10^3/uL [place] # (Auto) 0.7 (0.0-1.0) 10^3/uL Eos # (Auto) 0.3 (0.0-0.7) 10^3/uL Baso # (Auto) 0.1 (0.0-0.1) 10^3/uL Absolute Nucleated RBC 0.00 x10^3/uL Nucleated RBC % 0.0 /100WBC PT 10.9 (9.9-12.6) secs INR 1.0 (0.8-1.2) Sodium 138 (135-145) mmol/L Potassium 3.7 (3.5-4.5) mmol/L Chloride 103 (101-111) mmol/L Carbon Dioxide 28 (21-32) mmol/L Anion Gap 7.0 (6-13) BUN 21 H (6-20) mg/dL Creatinine 1.3 (0.6-1.3) mg/dL Estimated GFR (MDRD) 53 L (>89) Glucose 135 H (74-104) mg/dL Calcium 9.4 (8.5-10.3) mg/dL Total Bilirubin 0.3 (0.2-1.0) mg/dL AST 20 (10-42) IU/L ALT 13 (10-60) IU/L Alkaline Phosphatase 62 (42-121) IU/L Total Protein 7.0 (6.4-8.9) g/dL Albumin 4.3 (3.2-5.5) g/dL Globulin 2.7 (2.1-4.2) g/dL Albumin/Globulin Ratio 1.6 (1.0-2.2) Lipase 20 (11-82) U/L - Diagnostic Imaging Diagnostic Imaging Results: positive: Final report reviewed Diagnostic Imaging Comments: XR Hip with Pelvis (10/01/23): Acute subcapital left femoral neck fracture with mild associated angulation abnormality. No dislocation. - Other Results/Comments Other Results/Comments: EKG: per my read - Normal sinus rhythm, heart rate 64, rightward axis deviation, right bundle branch block with left posterior fascicular block, no ischemic ST/T wave changes. EKG appears overall similar to an EKG from 2013. ABX Reporting Has patient been on IV antibiotics over the past 48 hours?: No Sepsis Event Note (H) - Evaluation Current Stage of Sepsis: Ruled out Assessment/Plan - Problem List (1) Nondisplaced fracture of neck of left femur Impression: He had a mechanical fall last evening that resulted in a subcapital left femoral neck fracture. -His admission EKG shows a right bundle branch block with left posterior fascicular block, however this is similar to a previous EKG in 2013. -He has no current or recent history of exertional anginal symptoms and no known history of CAD, DM, CKD, TIA/CVA. His RCRI is less than 1 with a low risk for adverse postoperative cardiac events. -TTE was ordered on admission however given the lack of concerning symptoms he can proceed with surgery as planned. -Continue as needed analgesics with oxycodone and IV Dilaudid for severe pain. -Orthopedic surgery is consulted, appreciate assistance. -PT/OT consulted, anticipate likely SNF placement for ongoing rehab. (2) Abnormal EKG Impression: As noted above his admission EKG showed a right bundle branch block and left posterior fascicular block, however this appears to be similar to an EKG obtained in 2013. -Given the lack of concerning cardiopulmonary symptoms he does not require further cardiac evaluation and can proceed with surgery as indicated. (3) Acute urinary retention Impression: He does have a history of BPH however his acute urinary retention is likely secondary to narcotic use and pain. -Hess catheter placed last evening, will continue for now and plan on voiding trial in next 1 to 2 days. -Continue home Flomax. (4) Hyperlipidemia Impression: Resume home simvastatin. Qualifiers: Hyperlipidemia type: mixed hyperlipidemia Qualified Code(s): E78.2 - Mixed hyperlipidemia (5) Gout Impression: Resume home allopurinol. (6) GERD (gastroesophageal reflux disease) Impression: No acute issues at this time. -Place on protonix instead of home omeprazole while hospitalized.
[2023-10-02] MEDS: CETIRIZINE 10 MG TABLET PO SCH (09:02)
[2023-10-02] MEDS: allopurinoL 100 MG TABLET PO SCH (09:02)
[2023-10-02] MEDS: TAMSULOSIN 0.4 MG CAPSULE PO SCH (09:02)
--- NOTE | 2023-10-02 10:55 | PHARMACY PROGRESS NOTE ---
- Best Possible Medication History Admit Date and Time: 10/02/23 1013 Processed by: Pharmacy Medications reviewed in ED?: No Medication History completed: Yes Patient Interview: Completed Secondary Source(s): Spouse/Significant other, Insurance records As the person ultimately responsible for medication therapy, providers are able to order a medication from an existing home medication list in [facility] via the "Reconcile Routine" prior to Confirmation of that medication by computer support analyst. Such practice is discouraged except when the physician, in their clinical judgment, deems that a medical need exists for a medication without regard to previous use.
--- NOTE | 2023-10-02 11:34 | ANESTHESIA ---
Pre-Anesthesia VS, & Labs - Diagnosis R hip fx - Procedure R hip hemiarthroplasty Vital Signs: Temp Pulse Resp BP Pulse Ox O2 Flow Rate 36.7 C 77 16 127/70 96 10/02/23 08:00 10/02/23 08:00 10/02/23 08:00 10/02/23 08:00 10/02/23 08:00 Height: 5 ft 10 in Weight (kg): 77 kg Body Mass Index: 24.3 BMI Classification: Normal - NPO >8 hours - Lab Results Current Lab Results: Laboratory Tests 10/02/23 08:42: B-Natriuretic Peptide 96 10/01/23 20:57: PT 10.9, INR 1.0 10/01/23 20:42: Sodium 138, Potassium 3.7, Chloride 103, Carbon Dioxide 28, Anion Gap 7.0, BUN 21 H, Creatinine 1.3, Estimated GFR (MDRD) 53 L, Glucose 135 H, Calcium 9.4, Total Bilirubin 0.3, AST 20, ALT 13, Alkaline Phosphatase 62, Total Protein 7.0, Albumin 4.3, Globulin 2.7, Albumin/Globulin Ratio 1.6, Lipase 20 10/01/23 20:42: WBC 9.6, RBC 3.90 L, Hgb 11.8 L, Hct 36.8 L, MCV 94.4 H, MCH 30.3, MCHC 32.1, RDW 12.5, Plt Count 163, MPV 9.2, Neut # (Auto) 6.4, Lymph # (Auto) 2.2, [place] # (Auto) 0.7, Eos # (Auto) 0.3, Baso # (Auto) 0.1, Absolute Nucleated RBC 0.00, Nucleated RBC % 0.0 Fish Bones: 10/01/23 20:42 10/01/23 20:42 Home Medications and Allergies Home Medications: Ambulatory Orders Cetirizine HCl [Allergy] 10 mg PO DAILY 10/01/23 Cyanocobalamin (Vitamin B-12) [Dodex] 1,000 mcg IJ UD 10/01/23 Multivitamin 1 each PO DAILY 10/01/23 Simvastatin [Zocor] 20 mg PO HS 10/01/23 Acetaminophen [Tylenol] 500 mg PO QPM 10/02/23 Active Medications Acetaminophen (Acetaminophen 325 Mg Tablet) 650 mg PO Q4HR PRN PRN Reason: Pain 1 to 4, or Fever Allopurinol (Allopurinol 100 Mg Tablet) 100 mg PO DAILY [facility] Last Admin: 10/02/23 09:02 Dose: 100 mg Atorvastatin Calcium (Atorvastatin 10 Mg Tablet) 10 mg PO HS [facility] Cetirizine HCl (Cetirizine 10 Mg Tablet) 10 mg PO DAILY [facility] Last Admin: 10/02/23 09:02 Dose: 10 mg Hydromorphone HCl (Hydromorphone 0.5 Mg/0.5 Ml Syringe) 0.5 mg IVP Q4H PRN PRN Reason: Severe Pain (Level 7-10) Hydroxyzine Pamoate (Hydroxyzine Pamoate 25 Mg Capsule) 25 mg PO Q8HR PRN PRN Reason: Anxiety Sodium Chloride (Normal Saline 0.9%) 1,000 mls @ 75 mls/hr IV .[id number] [facility] Stop: 10/02/23 21:59 Last Admin: 10/01/23 22:44 Dose: 75 mls/hr Promethazine HCl 12.5 mg/ (Sodium Chloride) 50.5 mls @ 100 mls/hr IV Q6H PRN PRN Reason: Nausea / Vomiting Last Infusion: 10/02/23 00:37 Dose: Infused Morphine Sulfate (Morphine 2 Mg/Ml Carpuject) 2 mg IVP Q4HR PRN PRN Reason: Pain 8 to 10 Last Admin: 10/02/23 02:53 Dose: 2 mg Ondansetron HCl (Ondansetron 4 Mg/2 Ml Vial) 4 mg IVP Q6HR PRN PRN Reason: Nausea / Vomiting Last Admin: 10/01/23 23:13 Dose: 4 mg Oxycodone HCl (Oxycodone 5 Mg Tablet) 5 mg PO Q4HR PRN PRN Reason: Pain 5 to 7 Pantoprazole Sodium (Pantoprazole 40 Mg Tablet) 40 mg PO QDAC [facility] Last Admin: 10/02/23 06:21 Dose: 40 mg Patient Own Med ( (Nortriptyline 20mg)) 20 each PO HS [facility] Sodium Chloride (Sodium Chloride Flush 0.9% 10 Ml Syringe) 10 ml IVP PRN PRN PRN Reason: NEEDED PER PROVIDER ORDERS Sodium Chloride (Sodium Chloride Flush 0.9% 10 Ml Syringe) 10 ml IVP 0100,0900,1700 [facility] Last Admin: 10/02/23 07:47 Dose: Not Given Tamsulosin HCl (Tamsulosin 0.4 Mg Capsule) 0.4 mg PO DAILY [facility] Last Admin: 10/02/23 09:02 Dose: 0.4 mg Trazodone HCl (Trazodone 50 Mg Tablet) 50 mg PO HS [facility] Nortriptyline [Pamelor] 20 mg PO HS 02/25/13 Omeprazole 40 mg PO QDAC 02/25/13 Tamsulosin [Flomax] 0.4 mg PO DAILY 12/21/21 allopurinoL [Zyloprim] 100 mg PO DAILY 12/21/21 traZODone [Desyrel] 50 mg PO DAILY 12/21/21 Cetirizine HCl [Allergy] 10 mg PO DAILY 10/01/23 Cyanocobalamin (Vitamin B-12) [Dodex] 1,000 mcg IJ UD 10/01/23 Multivitamin 1 each PO DAILY 10/01/23 Simvastatin [Zocor] 20 mg PO HS 10/01/23 Acetaminophen [Tylenol] 500 mg PO QPM 10/02/23 Allergies/Adverse Reactions: Allergies Allergy/AdvReac Type Severity Reaction Status Date / Time clarithromycin [From Biaxin] Allergy Unknown NAUSEA/DIAR Verified 10/01/23 19:57 ALEK Anes History & Medical History - Anesthetic History Anesthesia Complications: reports: Post-Operative Nausea/Vomiting Family history of Anesthesia Complications: Denies Family history of Malignant Hyperthermia: Denies - Medical History Cardiovascular: reports: High cholesterol Pulmonary: reports: None Gastrointestinal: reports: GERD, Diverticulitis Urinary: reports: Incontinence Neuro: reports: None Musculoskeletal: reports: Osteoarthritis Endocrine/Autoimmune: reports: HyPOthyroidism Blood Disorders: reports: None Skin: reports: None Smoking Status: Former smoker - Surgical History General: reports: Colonoscopy, EGD, Other Orthopedic: reports: Rotator cuff repair Exam General: Alert, Oriented x3, Cooperative Dental: WNL Mouth Openin Fingerbreadth Neck Mobility: Normal Mallampati classification: I Thyromental Distance: 4-6 cm Respiratory: Lungs clear Cardiovascular: Regular rate Plan Anesthesia Type: General (SAB primary plan with GA as backup), Spinal Consent for Procedure(s) Verified and Reviewed: Yes Code Status: Attempt Resuscitation ASA classification: 2-Mild systemic disease Is this case an emergency?: No
[2023-10-02] MEDS ORDERED: MORPHINE 2 MG/ML CARPUJECT IVP PRN (11:35)
[2023-10-02] MEDS ORDERED: METOCLOPRAMIDE 10 MG/2 ML VIAL IVP PRN (11:35)
[2023-10-02] MEDS ORDERED: ePHEDrine 50 MG/ML VIAL IVP PRN (11:35)
[2023-10-02] MEDS ORDERED: ATROPINE ABBOJECT 1 MG/10 ML SYRINGE IVP PRN (11:35)
[2023-10-02] MEDS ORDERED: NALOXONE 0.4 MG/ML VIAL IVP PRN (11:35)
[2023-10-02] MEDS ORDERED: ONDANSETRON 4 MG/2 ML VIAL IVP PRN (11:35)
[2023-10-02] MEDS ORDERED: fentaNYL 100 MCG/2 ML VIAL IVP PRN (11:35)
[2023-10-02] MEDS: ACETAMINOPHEN 325 MG TABLET PO PRN (12:03)
[2023-10-02] MEDS ORDERED: BUPIVACAINE 0.25% PF 30 ML VIAL ONE (12:18)
[2023-10-02] MEDS ORDERED: VANCOMYCIN 1 GM VIAL ONE (12:18)
[2023-10-02] MEDS ORDERED: KETAMINE 200 MG/20 ML VIAL ONE (12:44)
[2023-10-02] MEDS ORDERED: PROPOFOL 500 MG/50 ML 500 MG/50 ML VIAL ONE (12:44)
[2023-10-02] MEDS: LACTATED RINGERS 1,000 ML IV SCH (13:05)
--- NOTE | 2023-10-02 13:06 | HISTORY & PHYSICAL EXAMINATION ---
HPI - History Obtained From History obtained from: Patient - History of Present Illness HPI Comment/Other: This is a relatively healthy 82-year-old gentleman with a history of a ground- level fall that occurred yesterday at home as he was turning. He does have a history of balance problems and peripheral neuropathy that makes it difficult to feel sensation to his feet. He does have a history of falls but no history of fracture. Yesterday's fall he needed to help as he cannot stand on his left leg. He was brought to the emergency room where he was admitted to the hospital service and orthopedics has been consulted. Dr. Walter was on-call yesterday and has transferred his care to me today. The patient has localized pain to the left upper thigh. He denies chest pain, shortness of breath, syncope, loss of consciousness associated with fall. He has been going to physical therapy to work on his balance. He does use a walking aid most of the time to ambulate. He denies previous problems with his left hip. He denies myocardial infarction, stroke, cancer, diabetes, deep venous thrombosis, bleeding ulcers. He denies cigarette smoking and uses a glass of alcohol approximately once daily PMH/PSH - Past Medical History Cardiovascular: positive: High cholesterol Respiratory: positive: None Neuro: positive: None Endocrine/Autoimmune: positive: HyPOthyroidism GI: positive: GERD, Diverticulitis : positive: Incontinence HEENT: positive: Dental implants Psych: positive: None Musculoskeletal: positive: Osteoarthritis Derm: positive: None MRSA Hx?: No - Past Surgical History General: positive: Colonoscopy, EGD, Other Ortho: positive: Rotator cuff repair Social & Family Hx - Social History Does the pt smoke?: No Smoking Status: Former smoker Does the pt drink ETOH?: No Does the pt have substance abuse?: No - POLST Patient has POLST: No Meds/Allgy - Home Medications Home Medications: Ambulatory Orders Medication Instructions Recorded Confirmed Nortriptyline [Pamelor] 20 mg PO HS 02/25/13 10/02/23 Omeprazole 40 mg PO QDAC 02/25/13 10/02/23 Tamsulosin [Flomax] 0.4 mg PO DAILY 12/21/21 10/02/23 allopurinoL [Zyloprim] 100 mg PO DAILY 12/21/21 10/02/23 traZODone [Desyrel] 50 mg PO DAILY 12/21/21 10/02/23 Cetirizine HCl [Allergy] 10 mg PO DAILY 10/01/23 10/02/23 Cyanocobalamin (Vitamin B-12) 1,000 mcg IJ UD 10/01/23 10/02/23 [Dodex] Multivitamin 1 each PO DAILY 10/01/23 10/02/23 Simvastatin [Zocor] 20 mg PO HS 10/01/23 10/02/23 Acetaminophen [Tylenol] 500 mg PO QPM 10/02/23 10/02/23 - Allergies Allergies/Adverse Reactions: Allergies Allergy/AdvReac Type Severity Reaction Status Date / Time clarithromycin [From Biaxin] Allergy Unknown NAUSEA/DIAR Verified 10/01/23 19:57 ALEK Exam - Vital Signs Vital Signs: Vital Signs x48h Temp Pulse Resp BP Pulse Ox 10/02/23 08:00 36.7 C 77 16 127/70 96 - Physical Exam General Appearance: positive: Mild distress Neck: positive: Nml inspection Respiratory: positive: Chest non-tender, No respiratory distress Peripheral Pulses: positive: 1+ Abdomen: positive: Non-tender Skin: positive: No rash, Warm, Dry Neurologic/Psychiatric: positive: Oriented x3, Motor nml, Sensation nml Comments/Other: Left leg has painful movement with any passive motion, shortening and external rotation left leg. Neurovascular intact left leg Results - Lab Results Fish Bones: 10/01/23 20:42 10/01/23 20:42 Other Lab Results: Lab Results x24hrs 10/02/23 10/01/23 10/01/23 Range/Units 08:42 20:57 20:42 WBC (4.8-10.8) x10^3/uL RBC (4.70-6.10) 10^6/uL Hgb (14.0-18.0) g/dL Hct (42.0-52.0) % MCV (80.0-94.0) fL MCH (27.0-31.0) pg MCHC (32.0-36.0) g/dL RDW (12.0-15.0) % Plt Count (130-450) 10^3/uL MPV (7.4-11.4) fL Neut # (Auto) (1.5-6.6) 10^3/uL Lymph # (Auto) (1.5-3.5) 10^3/uL [place] # (Auto) (0.0-1.0) 10^3/uL Eos # (Auto) (0.0-0.7) 10^3/uL Baso # (Auto) (0.0-0.1) 10^3/uL Absolute Nucleated RBC x10^3/uL Nucleated RBC % /100WBC PT 10.9 (9.9-12.6) secs INR 1.0 (0.8-1.2) Sodium 138 (135-145) mmol/L Potassium 3.7 (3.5-4.5) mmol/L Chloride 103 (101-111) mmol/L Carbon Dioxide 28 (21-32) mmol/L Anion Gap 7.0 (6-13) BUN 21 H (6-20) mg/dL Creatinine 1.3 (0.6-1.3) mg/dL Estimated GFR (MDRD) 53 L (>89) Glucose 135 H (74-104) mg/dL Calcium 9.4 (8.5-10.3) mg/dL Total Bilirubin 0.3 (0.2-1.0) mg/dL AST 20 (10-42) IU/L ALT 13 (10-60) IU/L Alkaline Phosphatase 62 (42-121) IU/L B-Natriuretic Peptide 96 (5-100) pg/mL Total Protein 7.0 (6.4-8.9) g/dL Albumin 4.3 (3.2-5.5) g/dL Globulin 2.7 (2.1-4.2) g/dL Albumin/Globulin Ratio 1.6 (1.0-2.2) Lipase 20 (11-82) U/L 10/01/23 Range/Units 20:42 WBC 9.6 (4.8-10.8) x10^3/uL RBC 3.90 L (4.70-6.10) 10^6/uL Hgb 11.8 L (14.0-18.0) g/dL Hct 36.8 L (42.0-52.0) % MCV 94.4 H (80.0-94.0) fL MCH 30.3 (27.0-31.0) pg MCHC 32.1 (32.0-36.0) g/dL RDW 12.5 (12.0-15.0) % Plt Count 163 (130-450) 10^3/uL MPV 9.2 (7.4-11.4) fL Neut # (Auto) 6.4 (1.5-6.6) 10^3/uL Lymph # (Auto) 2.2 (1.5-3.5) 10^3/uL [place] # (Auto) 0.7 (0.0-1.0) 10^3/uL Eos # (Auto) 0.3 (0.0-0.7) 10^3/uL Baso # (Auto) 0.1 (0.0-0.1) 10^3/uL Absolute Nucleated RBC 0.00 x10^3/uL Nucleated RBC % 0.0 /100WBC PT (9.9-12.6) secs INR (0.8-1.2) Sodium (135-145) mmol/L Potassium (3.5-4.5) mmol/L Chloride (101-111) mmol/L Carbon Dioxide (21-32) mmol/L Anion Gap (6-13) BUN (6-20) mg/dL Creatinine (0.6-1.3) mg/dL Estimated GFR (MDRD) (>89) Glucose (74-104) mg/dL Calcium (8.5-10.3) mg/dL Total Bilirubin (0.2-1.0) mg/dL AST (10-42) IU/L ALT (10-60) IU/L Alkaline Phosphatase (42-121) IU/L B-Natriuretic Peptide (5-100) pg/mL Total Protein (6.4-8.9) g/dL Albumin (3.2-5.5) g/dL Globulin (2.1-4.2) g/dL Albumin/Globulin Ratio (1.0-2.2) Lipase (11-82) U/L - Diagnostic Imaging Results Diagnostic Imaging Results: positive: Read independently (X-rays show displacement of a femoral neck fracture in both AP and lateral views. There is some varus angulation on the AP view and angulation on the lateral view as well.) Sepsis Event Note (H) - Evaluation Current Stage of Sepsis: Ruled out Impression/Plan - Problem List Problem List: Displaced femoral neck fracture left hip I discussed the risk, goals and likelihood of achieving goals, alternatives to surgery and consequences, disability and rarely . No matter how this fracture is treated there is significant potential for disability and mortality. Generally, the outcome is more favorable with surgical treatment then nonoperative treatment. The discussion was performed with both patient and his . Both are in agreement would like to proceed with surgery which would be a hip hemiarthroplasty of the left hip. He has been evaluated preoperatively by her medical team; no specific contraindications for surgery. An informed consent has been obtained and signed by patient
[2023-10-02] MEDS ORDERED: ROCURONIUM 50 MG/5 ML VIAL ONE (14:00)
[2023-10-02] MEDS ORDERED: fentaNYL 100 MCG/2 ML VIAL ONE ×2 (14:01→14:47)
[2023-10-02] MEDS ORDERED: ceFAZolin 1 GM VIAL ONE (14:16)
[2023-10-02] MEDS ORDERED: TRANEXAMIC ACID 1,000 MG/10 ML VIAL ONE (14:16)
[2023-10-02] MEDS: VANCOMYCIN 1 GM VIAL MC ONE (14:57)
[2023-10-02] MEDS ORDERED: DEXAMETHASONE 4 MG/ML VIAL ONE (15:11)
[2023-10-02] MEDS ORDERED: HYDROmorphone 1 MG/ML CARPUJECT ONE (15:11)
[2023-10-02] MEDS ORDERED: SUGAMMADEX 200 MG/2 ML VIAL IVP ONE (15:51)
[2023-10-02] MEDS ORDERED: ROPIVACAINE 0.2% PF 10 ML VIAL ONE (16:02)
--- NOTE | 2023-10-02 16:13 | OPERATIVE REPORT ---
Operative Report - General Admit Date: 10/02/23 Procedure Date: 10/02/23 Planned Procedure: Left hip hemiarthroplasty Pre-Op Diagnosis: Displaced femoral neck fracture left hip Procedure Performed: Cemented left hip hemiarthroplasty with [employer] #13 Synergy high offset femoral component with 50 mm +0 bipolar femoral head Post Op Diagnosis: Same as preoperative diagnosis - Procedure Note Primary Surgeon: Quinten Young MD Secondary Surgeon: Kierra Fuentes PAC Anesthesia Provider: Nancy Benjamin CRNA Anesthesia Technique: General ET tube Estimated Blood Loss (mL): 100 Indications: This is an 82-year-old gentleman with a history of fall prior to admission. He sustained a ground-level fall at home. He states he tripped but does have a history of balance issues when walking and some previous history of falls. He also has neuropathy of his lower extremities. Otherwise he is in relatively good health and does ambulate in the community. His primary complaint is pain to the left hip and upper thigh. He is unable to bear weight on left leg. He was brought to the emergency room following injury and was admitted to the hospitalist service. He was seen in orthopedic consultation today. He did have shortening and external rotation deformity of the left leg and considerable pain with any attempted passive motion of the left hip. There is no sign of hematoma and no sign of break in the skin. His x-rays showed displacement of a femoral neck fracture on both AP and lateral views. An informed consent was obtained from patient and agreeing to hemiarthroplasty of the left hip. He has had preoperative medical evaluation as well by the hospitalist service and not felt to have any contraindications to surgery. Findings: He had a subcapital displaced femoral neck fracture of the left hip with comminution in the posterior neck. The acetabular cartilage and acetabulum was intact. Complications: None - Other Other Information/Narrative: The patient was brought to the operating room, given a general anesthetic. The patient was placed on the operating table initially supine, then turned to a lateral decubitus position with the left hip facing superiorly. The patient was secured in the lateral decubitus position using the pegboard and PEG holders to pelvis and torso. The left hip and lower extremity were prepped and draped in a sterile manner in the usual fashion. A timeout procedure was performed by the entire operating room team and all were in agreement. A longitudinal incision was made over the lateral aspect of the left hip, centered about the greater trochanter. The skin, subcutaneous tissue and fascia radha were split. A self-retaining retractor was inserted. The myotendinous junction of the anterior one third of the gluteus medius was released. The anterior hip capsule was exposed split longitudinally and then divided transversely in a T-shaped fashion. Part of the anterior hip capsule was Excised. The femoral head was removed using a corkscrew and bone hook, measured 50 mm in diameter with calipers. The acetabulum was cleared of some small capsular fracture fragments. The left leg was placed in an anterior pocket. The femoral canal was opened with a box osteotome, starting reamer and then broaching up to a 13 mm broach. The broaching was done in 1 mm increments. The broach was inserted with slight anteversion. A cemented technique was elected. A canal plug was inserted distally, approximately 19 cm distal to the osteotomy. The canal was cleaned with a brush and pulsatile lavage, dried with a suction pad and lap pad. A 13 Synergy component was then inserted after using a cement gun to insert the antibiotic impregnated cement, pressurizing the cement. The proximal portion of the stem was pushed slightly laterally, set flush with femoral neck cortex. Trial reduction was performed with the 54 mm +0 unipolar head and was found to be stable and had good leg length tension. A permanent 54 mm bipolar head was then impacted on the femoral trunnion, reduced, taken through range of motion is found to have good motion and good stability as well as leg length tension. The wound was irrigated with dilute Betadine For 3 minutes followed by saline irrigation. Vancomycin powder 2 g was placed before the deep closure The anterior capsule and gluteus medius were both repaired with #1 strata fix suture, fascia radha closed with #1 strata fix suture, subcutaneous tissue closed with 2 O strata fix suture, subcuticular closure with 3 O strata fix suture. . Irrisept irrigation was intermittently utilized throughout the procedure. Finally, Dermabond was applied to the skin, silver impregnated dressing after the Dermabond had hardened. The patient received 2 g of Ancef and 2 g of tranxemic acid, tolerated procedure well. Physician surgeon assistant was utilized, medically necessary, to provide the necessary exposure, protection of vital structures, facilitate with dislocation and reduction of the hip, wound closure and dressing.
[2023-10-02] MEDS ORDERED: ONDANSETRON ODT 4 MG TABLET TL PRN (16:35)
[2023-10-02] MEDS ORDERED: fentaNYL 250 MCG/5 ML VIAL IVP PRN (16:35)
[2023-10-02] MEDS: LACTATED RINGERS 1,000 ML IV ONE (16:53)
[2023-10-02] MEDS ORDERED: ENOXAPARIN 40 MG/0.4 ML SYRINGE SUBQ SCH (17:00)
[2023-10-02] MEDS ORDERED: ONDANSETRON 4 MG/2 ML VIAL ONE (17:45)
[2023-10-02] MEDS: ONDANSETRON 4 MG/2 ML VIAL ONE (17:45)
--- NOTE | 2023-10-02 17:53 | XRAY Report ---
PROCEDURE: Pelvis 1-2V INDICATIONS: POST OP Left hip rosmery arthroplasty TECHNIQUE: 1 view(s) of the pelvis acquired. COMPARISON: X-ray hip 10/01/2023 FINDINGS: Left hip arthroplasty. Hardware is intact without evidence of hardware fracture or periprosthetic randy ency to suggest loosening. Soft tissue changes with recent left hip surgery are present. Moderate rig ht hip arthritic change. IMPRESSION: Postsurgical changes consistent with left hip arthroplasty. Reviewed by: Jaymie Nicole MD on 10/02/2023 5:52 PM PDT Approved by: Jaymie Nicole MD on 10/02/2023 5:52 PM PDT Station ID: [id number]
[2023-10-02] MEDS: NS W/20 MEQ KCL 1,000 ML IV SCH (18:13)
[2023-10-02] MEDS: ceFAZolin (2G) 2 GM in SODIUM CHLORIDE 0.9% MINIBAG 100 ML IV SCH (19:52)
--- NOTE | 2023-10-02 19:57 | ANESTHESIA POST OP EVALUATION ---
Anesthesia Post Eval - Post Anesthesia Eval Vitals: Last Vital Signs Temp 36.6 C 10/02/23 19:06 Pulse 65 10/02/23 19:06 Resp 16 10/02/23 19:06 BP 134/58 H 10/02/23 19:06 Pulse Ox 95 10/02/23 19:06 O2 Flow Rate 1 10/02/23 19:06 CV Function Including HR & BP: Stable Pain Control: Satisfactory Nausea & Vomiting: Negative Mental Status: Baseline Respiratory Status: Airway Patent Hydration Status: Satisfactory Anesthesia Complications: None
[2023-10-02] MEDS: ATORVASTATIN 10 MG TABLET PO SCH (20:56)
[2023-10-02] MEDS: traZODone 50 MG TABLET PO SCH (20:57)
[2023-10-02] MEDS: NORTRIPTYLINE PO SCH (20:57)
[2023-10-02] MEDS ORDERED: CELECOXIB 100 MG CAPSULE PO SCH (21:00)
[2023-10-03] MEDS: PHENYLEPHRINE 20 MG in SODIUM CHLORIDE 0.9% 248 ML IV ONE (03:01)
[2023-10-03 05:30] LABS: BASOPHILS % (AUTO) 0.1 %; HCT - HEMATOCRIT 30.5 % (42.0-52.0); HGB - HEMOGLOBIN 9.7 g/dL (14.0-18.0); LYMPHOCYTES # (AUTO) 1.1 10^3/uL (1.5-3.5); MEAN CORPUSCULAR HEMOGLOBIN 30.1 pg (27.0-31.0); MEAN CORPUSCULAR HGB CONC 31.8 g/dL (32.0-36.0); MEAN CORPUSCULAR VOLUME 94.7 fL (80.0-94.0); MEAN PLATELET VOLUME 9.9 fL (7.4-11.4); MONOCYTES % (AUTO) 9.9 %; NEUTROPHILS # (AUTO) 8.1 10^3/uL (1.5-6.6); NEUTROPHILS % (AUTO) 78.7 %; PLT - PLATELET COUNT 138 10^3/uL (130-450); RED BLOOD COUNT 3.22 10^6/uL (4.70-6.10); WHITE BLOOD COUNT 10.3 x10^3/uL (4.8-10.8)
[2023-10-03 05:50] LABS: CALCIUM 8.6 mg/dL (8.5-10.3); CREATININE 1.4 mg/dL (0.6-1.3); POTASSIUM 4.2 mmol/L (3.5-4.5)
[2023-10-03] MEDS: ENOXAPARIN 40 MG/0.4 ML SYRINGE SUBQ SCH (08:51)
[2023-10-03] MEDS: CALCIUM CARBONATE CHEW 500 MG TABLET PO SCH (08:54)
[2023-10-03] MEDS: CHOLECALCIFEROL 25 MCG TABLET PO SCH (08:54)
[2023-10-03] MEDS: polyethylene glycoL 3350 17 GM PACKET PO SCH (10:03)
--- NOTE | 2023-10-03 13:37 | PROVIDER PROGRESS NOTE ---
Subjective - General Admit Date: 10/02/23 Procedure Date: 10/02/23 Post Op Days: 1 Procedure Performed: Left hip hemiarthroplasty - Review of Systems All Other Systems: positive: Reviewed and negative - Other Other Information/Narrative: patient sitting upright in chair just finished lunch accompanied by He denies chest pain, dyspnea, nausea and emesis and frequency of urination he is up with physical therapy walking with front wheeled walker and is encour aged by his progress Objective - Patient Data Reviewed Vital Signs: Yes Vital Signs: Vital Signs x48h Temp Pulse Resp BP Pulse Ox 10/03/23 10:00 37.7 C 87 20 123/63 94 10/03/23 06:10 37.6 C 16 Weight: Weight 10/01/23 10/02/23 10/03/23 23:59 23:59 23:59 Weight (kg) 77 kg 77 kg Intake & Output: Intake and Output Totals x24h 10/01/23 10/02/23 10/03/23 23:59 23:59 23:59 Intake Total 1100 9311.440 6669 Output Total 200 1375 1675 Balance 900 292.167 -95 - Lab Results Lab Results: 10/03/23 04:49 10/03/23 04:49 Other Lab Results: Lab Results x24hrs 10/03/23 10/03/23 Range/Units 04:49 04:49 WBC 10.3 (4.8-10.8) x10^3/uL RBC 3.22 L (4.70-6.10) 10^6/uL Hgb 9.7 L (14.0-18.0) g/dL Hct 30.5 L (42.0-52.0) % MCV 94.7 H (80.0-94.0) fL MCH 30.1 (27.0-31.0) pg MCHC 31.8 L (32.0-36.0) g/dL RDW 13.0 (12.0-15.0) % Plt Count 138 (130-450) 10^3/uL MPV 9.9 (7.4-11.4) fL Neut # (Auto) 8.1 H (1.5-6.6) 10^3/uL Lymph # (Auto) 1.1 L (1.5-3.5) 10^3/uL [place] # (Auto) 1.0 (0.0-1.0) 10^3/uL Eos # (Auto) 0.0 (0.0-0.7) 10^3/uL Baso # (Auto) 0.0 (0.0-0.1) 10^3/uL Absolute Nucleated RBC 0.00 x10^3/uL Nucleated RBC % 0.0 /100WBC Sodium 137 (135-145) mmol/L Potassium 4.2 (3.5-4.5) mmol/L Chloride 106 (101-111) mmol/L Carbon Dioxide 24 (21-32) mmol/L Anion Gap 7.0 (6-13) BUN 23 H (6-20) mg/dL Creatinine 1.4 H (0.6-1.3) mg/dL Estimated GFR (MDRD) 49 L (>89) Glucose 109 H (74-104) mg/dL Calcium 8.6 (8.5-10.3) mg/dL - Imaging Results Radiology Imaging: positive: Final report received - Current Medications Current Medications: Current Medications Generic Name Dose Route Start Last Admin Trade Name Freq PRN Reason Stop Dose Admin Acetaminophen 650 mg 10/01/23 21:35 10/03/23 13:13 Acetaminophen 325 Mg Tablet PO 650 mg Q4HR PRN Administration Pain 1 to 4, or Fever Allopurinol 100 mg 10/02/23 09:00 10/03/23 08:51 Allopurinol 100 Mg Tablet PO 100 mg DAILY SHRUTI Administration Atorvastatin Calcium 10 mg 10/02/23 21:00 10/02/23 20:56 Atorvastatin 10 Mg Tablet PO 10 mg HS SHRUTI Administration Calcium Carbonate/Glycine 500 mg 10/03/23 09:00 10/03/23 08:54 Calcium Carbonate Chew 500 Mg Tablet PO 500 mg BID SHRUTI Administration Cetirizine HCl 10 mg 10/02/23 09:00 10/03/23 08:51 Cetirizine 10 Mg Tablet PO 10 mg DAILY SHRUTI Administration Cholecalciferol 50 mcg 10/03/23 09:00 10/03/23 08:54 Cholecalciferol 25 Mcg Tablet PO 50 mcg DAILY SHRUTI Administration Enoxaparin Sodium 40 mg 10/02/23 17:40 10/03/23 08:51 Enoxaparin 40 Mg/0.4 Ml Syringe SUBQ 40 mg DAILY SHRUTI Administration Promethazine HCl 12.5 mg/ 50.5 mls @ 100 mls/hr 10/01/23 23:42 10/02/23 00:37 Sodium Chloride IV Infused Q6H PRN Infusion Nausea / Vomiting Potassium Chloride/Sodium Chloride 1,000 mls @ 83 mls/hr 10/02/23 17:00 10/03/23 08:52 Normal Saline 0.9% W/20 Meq Kcl IV Not Given .Q12H3M SHRUTI Ondansetron HCl 4 mg 10/01/23 21:35 10/01/23 23:13 Ondansetron 4 Mg/2 Ml Vial IVP 4 mg Q6HR PRN Administration Nausea / Vomiting Pantoprazole Sodium 40 mg 10/02/23 07:00 10/03/23 06:32 Pantoprazole 40 Mg Tablet PO 40 mg QDAC SHRUTI Administration Patient Own Med ( 20 each 10/02/23 21:00 10/02/23 20:57 Nortriptyline 20mg) PO Not Given HS SHRUTI Polyethylene Glycol 17 gm 10/03/23 09:00 10/03/23 10:03 Polyethylene Glycol 3350 17 Gm Packet PO 17 gm DAILY SHRUTI Administration Sodium Chloride 10 ml 10/02/23 01:00 10/03/23 08:51 Sodium Chloride Flush 0.9% 10 Ml Syringe IVP Not Given 0100,0900,1700 SHRUTI Tamsulosin HCl 0.4 mg 10/02/23 09:00 10/03/23 08:51 Tamsulosin 0.4 Mg Capsule PO 0.4 mg DAILY SHRUTI Administration Trazodone HCl 50 mg 10/02/23 21:00 10/02/23 20:57 Trazodone 50 Mg Tablet PO 50 mg HS SHRUTI Administration - Physical Exam Comments/Other: well-developed, well-nourished, 82-year-old male, no acute distress Dressing is dry and intact without drainage or hematoma formation Neurovascular intact the femoral and sciatic nerve distribution ABX Reporting Has patient been on IV antibiotics over the past 48 hours?: Yes Impression/Plan - Problem List Problem List: 82-year-old male with a past medical history of peripheral neuropathy was postoperative day 1 from left hip hemiarthroplasty by Dr. Young at [facility] on 10/02/2023. He is recovering well with adequate pain control and is tolerating oral diet and is hopeful to discharge home. Plan: - DVT prophylaxis with 40 mg Lovenx SubQ Daily - Physical and occupational therapy evaluation and assessment for discharge - Pain control with scheduled tylenol and oxycodone and IV fentanyl as needed - Weight bearing as tolerated with front wheeled walker at all times. Anterior hip precautions. - Follow up with orthopedic clinic within 5 days of discharge - Mepilex dressing to remain in place until follow up. Ok to shower or sponge bathe if dressing remains in place and is not disrupted - Bowel regimen as needed - Normal diet, IV fluids to be discontinued when tolerating oral diet without nausea and emesis - Discontinue muse today - Absorbable sutures in place, no sutures to be removed prior to discharge
--- NOTE | 2023-10-03 14:32 | PROVIDER PROGRESS NOTE ---
Assessment/Plan - Problem List (1) Nondisplaced fracture of neck of left femur Assessment/Plan: Assessment: s/p L hip arthroplasty (lateral approach) 10/02/23. Patient is resting comfortably in bed this afternoon, 3/10 aching L hip incisional pain well-controlled with PO Tylenol. Neurovascular exam stable bilaterally (BLE pale with chronic numbness/tingling. Warm, 2+ palpable DP and PT pulses, motor funct ion intact equally. He was able to work with PT team today and sat in chair for approximately 45 minutes. He had been working with PT outpatient as well, and making general progress with his balance up until his fall on 10/01/23. Patient and his are currently discussing discharge planning and whether to opt for SNF vs home. They also have advance directive planning papers. Plan: -Continue acetaminophen and other pain meds prn -Continue to work with PT to mobilize -Discharge planning for physical rehab -Advance directive pending (2) Osteoporosis Assessment/Plan: Pathologic L hip fracture due to osteoporosis. Plan: -Calcium and vitamin D (3) Acute blood loss anemia Assessment/Plan: Erythropenia stable, RBC 3. Prior documentation of iron deficiency anemia thought to be from chronic PPI use for Murphy's esophagus requiring iron infusion. H/H stable 9.7/30 in the context of surgery (EBL 100cc) and IVF. Plan: -Start PO iron and vitamin C -Goal Hgb > 7.0 (4) Peripheral neuropathy Assessment/Plan: Assessment: Pt has chronic numbness/tingling of fingers and toes, and no etiology has been found outpatient. Motor function otherwise intact. Pt does not have diabetes. Plan: -Continue to monitor (5) Osteoarthritis Assessment/Plan: Assessment: Stable, no acute gross swelling of joints noted on exam. Plan: -Continue acetaminophen for pain prn -Nonpharmacological techniques prn - Current Meds Current Meds: Current Medications Generic Name Dose Route Start Last Admin Trade Name Freq PRN Reason Stop Dose Admin Acetaminophen 650 mg 10/01/23 21:35 10/03/23 13:13 Acetaminophen 325 Mg Tablet PO 650 mg Q4HR PRN Administration Pain 1 to 4, or Fever Allopurinol 100 mg 10/02/23 09:00 10/03/23 08:51 Allopurinol 100 Mg Tablet PO 100 mg DAILY SHRUTI Administration Atorvastatin Calcium 10 mg 10/02/23 21:00 10/02/23 20:56 Atorvastatin 10 Mg Tablet PO 10 mg HS SHRUTI Administration Calcium Carbonate/Glycine 500 mg 10/03/23 09:00 10/03/23 08:54 Calcium Carbonate Chew 500 Mg Tablet PO 500 mg BID SHRUTI Administration Cetirizine HCl 10 mg 10/02/23 09:00 10/03/23 08:51 Cetirizine 10 Mg Tablet PO 10 mg DAILY SHRUTI Administration Cholecalciferol 50 mcg 10/03/23 09:00 10/03/23 08:54 Cholecalciferol 25 Mcg Tablet PO 50 mcg DAILY SHRUTI Administration Enoxaparin Sodium 40 mg 10/02/23 17:40 10/03/23 08:51 Enoxaparin 40 Mg/0.4 Ml Syringe SUBQ 40 mg DAILY SHRUTI Administration Promethazine HCl 12.5 mg/ 50.5 mls @ 100 mls/hr 10/01/23 23:42 10/02/23 00:37 Sodium Chloride IV Infused Q6H PRN Infusion Nausea / Vomiting Potassium Chloride/Sodium Chloride 1,000 mls @ 83 mls/hr 10/02/23 17:00 10/03/23 08:52 Normal Saline 0.9% W/20 Meq Kcl IV Not Given .Q12H3M SHRUTI Ondansetron HCl 4 mg 10/01/23 21:35 10/01/23 23:13 Ondansetron 4 Mg/2 Ml Vial IVP 4 mg Q6HR PRN Administration Nausea / Vomiting Pantoprazole Sodium 40 mg 10/02/23 07:00 10/03/23 06:32 Pantoprazole 40 Mg Tablet PO 40 mg QDAC SHRUTI Administration Patient Own Med ( 20 each 10/02/23 21:00 10/02/23 20:57 Nortriptyline 20mg) PO Not Given HS SHRUTI Polyethylene Glycol 17 gm 10/03/23 09:00 10/03/23 10:03 Polyethylene Glycol 3350 17 Gm Packet PO 17 gm DAILY SHRUTI Administration Sodium Chloride 10 ml 10/02/23 01:00 10/03/23 08:51 Sodium Chloride Flush 0.9% 10 Ml Syringe IVP Not Given 0100,0900,1700 SHRUTI Tamsulosin HCl 0.4 mg 10/02/23 09:00 10/03/23 08:51 Tamsulosin 0.4 Mg Capsule PO 0.4 mg DAILY SHRUTI Administration Trazodone HCl 50 mg 10/02/23 21:00 10/02/23 20:57 Trazodone 50 Mg Tablet PO 50 mg HS SHRUTI Administration - Lab Result Lab results reviewed: Yes Fish Bone Diagrams: 10/03/23 04:49 10/03/23 04:49 - EKG Results EKG Interpreted Independently: Yes - Diagnostic Imaging Results Diagnostic Imaging Results: Final report reviewed - Additional Planning Condition/Complexity: Stable Plan Discussed with:: Patient, Spouse Time Spent: 15-30 minutes Subjective - Subjective Patient Reports: Feeling Better, Resting Comfortably, Other (L hip 3/10 aching incisional pain well-controlled with acetaminophen) Nursing Reports: No Complaints Objective Vital Signs: Vital Signs - 24 hr 10/02/23 10/02/23 10/02/23 16:53 17:00 17:05 Temperature 36.7 C Heart Rate 68 74 74 Heart Rate [ Brachial] Heart Rate [ Sitting] Heart Rate [ Standing] Heart Rate [ Supine] Respiratory 10 L 14 13 Rate Blood Pressure 114/64 114/64 121/64 Blood Pressure [Right Brachial artery] Blood Pressure [Sitting] Blood Pressure [Standing] Blood Pressure [Supine] O2 Saturation 100 97 96 If not protocol : Oxygen Flow, liters/minute 10/02/23 10/02/23 10/02/23 17:14 17:34 17:47 Temperature 37 C Heart Rate 79 75 71 Heart Rate [ Brachial] Heart Rate [ Sitting] Heart Rate [ Standing] Heart Rate [ Supine] Respiratory 15 18 18 Rate Blood Pressure 92/73 141/84 H 151/74 H Blood Pressure [Right Brachial artery] Blood Pressure [Sitting] Blood Pressure [Standing] Blood Pressure [Supine] O2 Saturation 100 98 92 If not protocol : Oxygen Flow, liters/minute 10/02/23 10/02/23 10/02/23 18:00 18:06 18:36 Temperature 36.5 C 36.7 C 36.6 C Heart Rate Heart Rate [ 78 70 77 Brachial] Heart Rate [ Sitting] Heart Rate [ Standing] Heart Rate [ Supine] Respiratory 17 16 17 Rate Blood Pressure Blood Pressure 132/73 H 132/56 H 132/73 H [Right Brachial artery] Blood Pressure [Sitting] Blood Pressure [Standing] Blood Pressure [Supine] O2 Saturation 96 94 95 If not protocol 1.5 2 2 : Oxygen Flow, liters/minute 10/02/23 10/02/23 10/02/23 19:06 20:03 20:55 Temperature 36.6 C 36.6 C 36.7 C Heart Rate Heart Rate [ 65 74 81 Brachial] Heart Rate [ Sitting] Heart Rate [ Standing] Heart Rate [ Supine] Respiratory 16 17 17 Rate Blood Pressure Blood Pressure 134/58 H 140/74 H 141/75 H [Right Brachial artery] Blood Pressure [Sitting] Blood Pressure [Standing] Blood Pressure [Supine] O2 Saturation 95 95 141 H If not protocol 1 1 : Oxygen Flow, liters/minute 10/03/23 10/03/23 10/03/23 00:14 04:00 04:51 Temperature 37.1 C 38.0 C H 37.6 C Heart Rate Heart Rate [ 87 82 Brachial] Heart Rate [ Sitting] Heart Rate [ Standing] Heart Rate [ Supine] Respiratory 12 12 Rate Blood Pressure Blood Pressure 129/71 136/69 H [Right Brachial artery] Blood Pressure [Sitting] Blood Pressure [Standing] Blood Pressure [Supine] O2 Saturation 93 95 If not protocol : Oxygen Flow, liters/minute 10/03/23 10/03/23 10/03/23 06:10 10:00 11:20 Temperature 37.6 C 37.7 C Heart Rate Heart Rate [ 87 Brachial] Heart Rate [ 95 Sitting] Heart Rate [ 102 H Standing] Heart Rate [ 84 Supine] Respiratory 16 20 Rate Blood Pressure Blood Pressure 123/63 [Right Brachial artery] Blood Pressure 141/71 H [Sitting] Blood Pressure 149/79 H [Standing] Blood Pressure 125/63 [Supine] O2 Saturation 94 If not protocol : Oxygen Flow, liters/minute 10/03/23 13:54 Temperature 37.0 C Heart Rate Heart Rate [ Brachial] Heart Rate [ Sitting] Heart Rate [ Standing] Heart Rate [ Supine] Respiratory 20 Rate Blood Pressure Blood Pressure 130/66 [Right Brachial artery] Blood Pressure [Sitting] Blood Pressure [Standing] Blood Pressure [Supine] O2 Saturation 96 If not protocol : Oxygen Flow, liters/minute Oxygen O2 Source Room air I&O (Last 24 Hrs): Intake and Output Totals x24h 10/01/23 10/02/23 10/03/23 23:59 23:59 23:59 Intake Total 1100 3527.625 3476 Output Total 200 1375 2225 Balance 900 292.167 -645 General: Alert, Oriented x3, Cooperative, No acute distress HEENT: Atraumatic, PERRLA Neck: No JVD, No thyromegaly Lymphatic: no adenopathy Neuro: Alert, CN 2-12 Grossly Intact, Oriented Times 3 Cardiovascular: Regular rate, Normal S1, Normal S2, No murmurs Respiratory: Chest non-tender, No respiratory distress, Other (Breath sounds diminished LLL) Abdomen: Normal bowel sounds, Soft, No tenderness, No hepatospenomegaly, No masses Genitourinary: No Mass, No Discharge Rectal: Other (Deferred) Extremities: Normal pulses, No tenderness/swelling, Other (2+ non-pitting pedal edema bilaterally) Skin: No rashes Comments/Notes: L lateral hip incision with antonio dressing and tegaderm clean, dry intact. Mild localized edema. No tenderness with palpation - Results Results: Laboratory Results WBC 10.3 x10^3/uL (4.8-10.8) 10/03/23 04:49 RBC 3.22 10^6/uL (4.70-6.10) L 10/03/23 04:49 Hgb 9.7 g/dL (14.0-18.0) L 10/03/23 04:49 Hct 30.5 % (42.0-52.0) L 10/03/23 04:49 MCV 94.7 fL (80.0-94.0) H 10/03/23 04:49 MCH 30.1 pg (27.0-31.0) 10/03/23 04:49 MCHC 31.8 g/dL (32.0-36.0) L 10/03/23 04:49 RDW 13.0 % (12.0-15.0) 10/03/23 04:49 Plt Count 138 10^3/uL (130-450) 10/03/23 04:49 MPV 9.9 fL (7.4-11.4) 10/03/23 04:49 Neut # (Auto) 8.1 10^3/uL (1.5-6.6) H 10/03/23 04:49 Lymph # (Auto) 1.1 10^3/uL (1.5-3.5) L 10/03/23 04:49 Weld # (Auto) 1.0 10^3/uL (0.0-1.0) 10/03/23 04:49 Eos # (Auto) 0.0 10^3/uL (0.0-0.7) 10/03/23 04:49 Baso # (Auto) 0.0 10^3/uL (0.0-0.1) 10/03/23 04:49 Absolute Nucleated RBC 0.00 x10^3/uL 10/03/23 04:49 Nucleated RBC % 0.0 /100WBC 10/03/23 04:49 PT 10.9 secs (9.9-12.6) 10/01/23 20:57 INR 1.0 (0.8-1.2) 10/01/23 20:57 Sodium 137 mmol/L (135-145) 10/03/23 04:49 Potassium 4.2 mmol/L (3.5-4.5) 10/03/23 04:49 Chloride 106 mmol/L (101-111) 10/03/23 04:49 Carbon Dioxide 24 mmol/L (21-32) 10/03/23 04:49 Anion Gap 7.0 (6-13) 10/03/23 04:49 BUN 23 mg/dL (6-20) H 10/03/23 04:49 Creatinine 1.4 mg/dL (0.6-1.3) H 10/03/23 04:49 Estimated GFR (MDRD) 49 (>89) L 10/03/23 04:49 Glucose 109 mg/dL (74-104) H 10/03/23 04:49 Calcium 8.6 mg/dL (8.5-10.3) 10/03/23 04:49 Total Bilirubin 0.3 mg/dL (0.2-1.0) 10/01/23 20:42 AST 20 IU/L (10-42) 10/01/23 20:42 ALT 13 IU/L (10-60) 10/01/23 20:42 Alkaline Phosphatase 62 IU/L (42-121) 10/01/23 20:42 B-Natriuretic Peptide 96 pg/mL (5-100) 10/02/23 08:42 Total Protein 7.0 g/dL (6.4-8.9) 10/01/23 20:42 Albumin 4.3 g/dL (3.2-5.5) 10/01/23 20:42 Globulin 2.7 g/dL (2.1-4.2) 10/01/23 20:42 Albumin/Globulin Ratio 1.6 (1.0-2.2) 10/01/23 20:42 Lipase 20 U/L (11-82) 10/01/23 20:42 - Procedures Procedures: Procedures ESOPHAGOGASTRODUODENOSCOPY [EGD] W/CLOSED BIOPSY (12/23/13) EXCISION OF ESOPHAGOGASTRIC JUNCTION, ENDO, DIAGN (03/02/16) EXCISION OF ESOPHAGUS, ENDO, DIAGN (12/22/21) OTH CHEST CAGE OSTECTOMY (02/26/13) OTHER PLASTIC OPS TENDON (02/26/13) ROTATOR CUFF REPAIR (02/26/13) SHOULDER ARTHROPLAST NEC (02/26/13) Sepsis Event Note (H) - Evaluation Current Stage of Sepsis: Ruled out ABX Reporting Has patient been on IV antibiotics over the past 48 hours?: Yes
[2023-10-03] MEDS: FERROUS GLUCONATE 324 MG TABLET PO SCH (16:41)
[2023-10-04] MEDS: ASCORBIC ACID 500 MG TABLET PO SCH (08:20)
--- NOTE | 2023-10-04 10:10 | PROVIDER PROGRESS NOTE ---
Assessment/Plan - Problem List (1) Nondisplaced fracture of neck of left femur Assessment/Plan: Assessment: s/p L hip arthroplasty (lateral approach) 10/02/23. Patient resting comfortably in bed around lunch time today and his pain is 2/10 aching L hip incisional pain. It is still well-controlled with PO Tylenol only. Non-pitting pedal/ankle edema 1+ today, improved from yesterday. Neurovascular exam stable bilaterally BLE pale with chronic numbness/tingling. Warm, 2+ palpable DP and PT pulses, motor function intact equally. He had been working with PT outpatient as well, and making general progress with his balance up until his fall on 10/01/23. Patient and his have opted for [facility], and their insurance has been accepted. Patient's advance directive is on file. Patient and his confirmed he would not like be resuscitated in the event of cardiopulmonary arrest, and wish to defer artificial nutrition and hydration in this context. POLST completed. Plan: -Continue acetaminophen and other pain meds prn -Weight bearing as tolerated -Continue to work with PT to mobilize -Discharge planning for POD 3 (on 10/04) -Plan for [facility] -POLST signed and in chart (2) Confusion Assessment/Plan: Assessment: New onset confusion after surgery in the context of advanced age and hospitalization/changes in daily routine. Speech clear, no focal deficits. Patient pulled out his IV overnight and was disoriented to time this morning, but is oriented x3 this afternoon. Delirium precautions reviewed with patient and his . Plan: -Delirium precautions (3) Osteoporosis Assessment/Plan: Assessment: Pathologic L hip fracture due to osteoporosis. Plan: -Continue calcium and vitamin D (4) Acute blood loss anemia Assessment/Plan: Assessment: Erythropenia stable, recent RBC 3. Prior documentation of iron deficiency anemia thought to be from chronic PPI use for Murphy's esophagus requiring iron infusion years ago. He's currently receiving monthly vitamin B12 injections. Recent H/H stable 9.7/30 in the context of surgery (EBL 100cc) and IVF. Plan: -Continue PO iron and vitamin C -Goal Hgb > 7.0 (5) Murmur Assessment/Plan: Assessment: 2/6 soft murmur at 2nd ICS at R sternal border. Patient does not have known history of valve disease. Given his cardiac stability and absence of chest pain or shortness of breath, discussed with his the recommendation to follow up on outpatient side with PCP Dr. Washington. Plan: -Follow up with PCP (6) Peripheral neuropathy Assessment/Plan: Assessment: Pt has chronic numbness/tingling of fingers and toes, and no etiology has been found outpatient. Motor function otherwise intact. Pt does not have diabetes. Plan: -Continue to monitor (7) Osteoarthritis Assessment/Plan: Assessment: Stable, no acute gross swelling of joints noted on exam. Plan: -Continue acetaminophen and nonpharmacological techniques for pain prn - Current Meds Current Meds: Current Medications Generic Name Dose Route Start Last Admin Trade Name Freq PRN Reason Stop Dose Admin Acetaminophen 650 mg 10/01/23 21:35 10/04/23 08:19 Acetaminophen 325 Mg Tablet PO 650 mg Q4HR PRN Administration Pain 1 to 4, or Fever Allopurinol 100 mg 10/02/23 09:00 10/04/23 08:20 Allopurinol 100 Mg Tablet PO 100 mg DAILY SHRUTI Administration Ascorbic Acid 500 mg 10/04/23 09:00 10/04/23 08:20 Ascorbic Acid 500 Mg Tablet PO 500 mg DAILY SHRUTI Administration Atorvastatin Calcium 10 mg 10/02/23 21:00 10/03/23 20:25 Atorvastatin 10 Mg Tablet PO 10 mg HS SHRUTI Administration Calcium Carbonate/Glycine 500 mg 10/03/23 09:00 10/04/23 08:19 Calcium Carbonate Chew 500 Mg Tablet PO 500 mg BID SHRUTI Administration Cetirizine HCl 10 mg 10/02/23 09:00 10/04/23 08:19 Cetirizine 10 Mg Tablet PO 10 mg DAILY SHRUTI Administration Cholecalciferol 50 mcg 10/03/23 09:00 10/04/23 08:19 Cholecalciferol 25 Mcg Tablet PO 50 mcg DAILY SHRUTI Administration Enoxaparin Sodium 40 mg 10/02/23 17:40 10/04/23 08:19 Enoxaparin 40 Mg/0.4 Ml Syringe SUBQ 40 mg DAILY SHRUTI Administration Ferrous Gluconate 324 mg 10/03/23 17:00 10/04/23 08:19 Ferrous Gluconate 324 Mg Tablet PO 324 mg DAILYWM SHRUTI Administration Promethazine HCl 12.5 mg/ 50.5 mls @ 100 mls/hr 10/01/23 23:42 10/02/23 00:37 Sodium Chloride IV Infused Q6H PRN Infusion Nausea / Vomiting Potassium Chloride/Sodium Chloride 1,000 mls @ 83 mls/hr 10/02/23 17:00 08:00 Normal Saline 0.9% W/20 Meq Kcl IV 0 mls/hr .Q12H3M SHRUTI Infusion Ondansetron HCl 4 mg 10/01/23 21:35 10/01/23 23:13 Ondansetron 4 Mg/2 Ml Vial IVP 4 mg Q6HR PRN Administration Nausea / Vomiting Pantoprazole Sodium 40 mg 10/02/23 07:00 10/04/23 06:10 Pantoprazole 40 Mg Tablet PO 40 mg QDAC SHRUTI Administration Patient Own Med ( 20 each 10/02/23 21:00 10/03/23 21:52 Nortriptyline 20mg) PO Not Given HS SHRUTI Polyethylene Glycol 17 gm 10/03/23 09:00 10/04/23 08:19 Polyethylene Glycol 3350 17 Gm Packet PO 17 gm DAILY SHRUTI Administration Sodium Chloride 10 ml 10/02/23 01:00 10/04/23 08:19 Sodium Chloride Flush 0.9% 10 Ml Syringe IVP Not Given 0100,0900,1700 SHRUTI Tamsulosin HCl 0.4 mg 10/02/23 09:00 10/04/23 08:19 Tamsulosin 0.4 Mg Capsule PO 0.4 mg DAILY SHRUTI Administration Trazodone HCl 50 mg 10/02/23 21:00 10/03/23 20:25 Trazodone 50 Mg Tablet PO 50 mg HS SHRUTI Administration - Lab Result Fish Bone Diagrams: 10/03/23 04:49 10/03/23 04:49 - EKG Results EKG Interpreted Independently: Yes - Diagnostic Imaging Results Diagnostic Imaging Results: Final report reviewed - Additional Planning Condition/Complexity: Stable Plan Discussed with:: Patient, Spouse Time Spent: 15-30 minutes Subjective - Subjective Patient Reports: Feeling Better, Resting Comfortably, No Complaints Nursing Reports: Confused Objective Vital Signs: Vital Signs - 24 hr 10/03/23 10/03/23 10/03/23 11:20 13:54 17:42 Temperature 37.0 C 37.1 C Heart Rate [ 91 Brachial] Heart Rate [ 95 Sitting] Heart Rate [ 102 H Standing] Heart Rate [ 84 Supine] Respiratory 20 18 Rate Blood Pressure 130/66 146/75 H [Right Brachial artery] Blood Pressure 141/71 H [Sitting] Blood Pressure 149/79 H [Standing] Blood Pressure 125/63 [Supine] O2 Saturation 96 95 10/03/23 10/04/23 10/04/23 22:00 01:20 04:25 Temperature 37.8 C 37.7 C 37.3 C Heart Rate [ 105 H 99 97 Brachial] Heart Rate [ Sitting] Heart Rate [ Standing] Heart Rate [ Supine] Respiratory 18 14 20 Rate Blood Pressure 113/78 152/73 H 156/77 H [Right Brachial artery] Blood Pressure [Sitting] Blood Pressure [Standing] Blood Pressure [Supine] O2 Saturation 96 93 93 10/04/23 07:49 Temperature 38.2 C H Heart Rate [ 79 Brachial] Heart Rate [ Sitting] Heart Rate [ Standing] Heart Rate [ Supine] Respiratory 18 Rate Blood Pressure 107/76 [Right Brachial artery] Blood Pressure [Sitting] Blood Pressure [Standing] Blood Pressure [Supine] O2 Saturation 94 Oxygen O2 Source Room air I&O (Last 24 Hrs): Intake and Output Totals x24h 10/02/23 10/03/23 10/04/23 23:59 23:59 23:59 Intake Total 2769.006 9570 1418.367 Output Total 1375 2925 950 Balance 292.167 -525 468.367 General: Alert, Cooperative, No acute distress, Other (Confused) HEENT: Atraumatic, PERRLA Neck: No JVD, No thyromegaly Lymphatic: no adenopathy Neuro: Disoriented, CN 2-12 Grossly Intact Cardiovascular: Regular rate, Normal S1, Normal S2, Other (Murmur) Respiratory: Chest non-tender, No respiratory distress Abdomen: Normal bowel sounds, Soft, No tenderness, No masses Genitourinary: Normal Inspection, No Discharge Rectal: Non-Tender Extremities: No clubbing, No cyanosis, Normal pulses, Other (1+ non-pitting pedal/ankle edema) Skin: No rashes - Results Results: Laboratory Results WBC 10.3 x10^3/uL (4.8-10.8) 10/03/23 04:49 RBC 3.22 10^6/uL (4.70-6.10) L 10/03/23 04:49 Hgb 9.7 g/dL (14.0-18.0) L 10/03/23 04:49 Hct 30.5 % (42.0-52.0) L 10/03/23 04:49 MCV 94.7 fL (80.0-94.0) H 10/03/23 04:49 MCH 30.1 pg (27.0-31.0) 10/03/23 04:49 MCHC 31.8 g/dL (32.0-36.0) L 10/03/23 04:49 RDW 13.0 % (12.0-15.0) 10/03/23 04:49 Plt Count 138 10^3/uL (130-450) 10/03/23 04:49 MPV 9.9 fL (7.4-11.4) 10/03/23 04:49 Neut # (Auto) 8.1 10^3/uL (1.5-6.6) H 10/03/23 04:49 Lymph # (Auto) 1.1 10^3/uL (1.5-3.5) L 10/03/23 04:49 [place] # (Auto) 1.0 10^3/uL (0.0-1.0) 10/03/23 04:49 Eos # (Auto) 0.0 10^3/uL (0.0-0.7) 10/03/23 04:49 Baso # (Auto) 0.0 10^3/uL (0.0-0.1) 10/03/23 04:49 Absolute Nucleated RBC 0.00 x10^3/uL 10/03/23 04:49 Nucleated RBC % 0.0 /100WBC 10/03/23 04:49 PT 10.9 secs (9.9-12.6) 10/01/23 20:57 INR 1.0 (0.8-1.2) 10/01/23 20:57 Sodium 137 mmol/L (135-145) 10/03/23 04:49 Potassium 4.2 mmol/L (3.5-4.5) 10/03/23 04:49 Chloride 106 mmol/L (101-111) 10/03/23 04:49 Carbon Dioxide 24 mmol/L (21-32) 10/03/23 04:49 Anion Gap 7.0 (6-13) 10/03/23 04:49 BUN 23 mg/dL (6-20) H 10/03/23 04:49 Creatinine 1.4 mg/dL (0.6-1.3) H 10/03/23 04:49 Estimated GFR (MDRD) 49 (>89) L 10/03/23 04:49 Glucose 109 mg/dL (74-104) H 10/03/23 04:49 Calcium 8.6 mg/dL (8.5-10.3) 10/03/23 04:49 Total Bilirubin 0.3 mg/dL (0.2-1.0) 10/01/23 20:42 AST 20 IU/L (10-42) 10/01/23 20:42 ALT 13 IU/L (10-60) 10/01/23 20:42 Alkaline Phosphatase 62 IU/L (42-121) 10/01/23 20:42 B-Natriuretic Peptide 96 pg/mL (5-100) 10/02/23 08:42 Total Protein 7.0 g/dL (6.4-8.9) 10/01/23 20:42 Albumin 4.3 g/dL (3.2-5.5) 10/01/23 20:42 Globulin 2.7 g/dL (2.1-4.2) 10/01/23 20:42 Albumin/Globulin Ratio 1.6 (1.0-2.2) 10/01/23 20:42 Lipase 20 U/L (11-82) 10/01/23 20:42 - Procedures Procedures: Procedures ESOPHAGOGASTRODUODENOSCOPY [EGD] W/CLOSED BIOPSY (12/23/13) EXCISION OF ESOPHAGOGASTRIC JUNCTION, ENDO, DIAGN (03/02/16) EXCISION OF ESOPHAGUS, ENDO, DIAGN (12/22/21) OTH CHEST CAGE OSTECTOMY (02/26/13) OTHER PLASTIC OPS TENDON (02/26/13) ROTATOR CUFF REPAIR (02/26/13) SHOULDER ARTHROPLAST NEC (02/26/13) Sepsis Event Note (H) - Evaluation Current Stage of Sepsis: Ruled out ABX Reporting Has patient been on IV antibiotics over the past 48 hours?: Yes Current Medications - Current Medications Current Medications: Active Medications Generic Name Dose Route Start Last Admin Trade Name Freq PRN Reason Stop Dose Admin Acetaminophen 650 mg 10/01/23 21:35 10/04/23 08:19 Acetaminophen 325 Mg Tablet PO 650 mg Q4HR PRN Administration Pain 1 to 4, or Fever Allopurinol 100 mg 10/02/23 09:00 10/04/23 08:20 Allopurinol 100 Mg Tablet PO 100 mg DAILY SHRUTI Administration Ascorbic Acid 500 mg 10/04/23 09:00 10/04/23 08:20 Ascorbic Acid 500 Mg Tablet PO 500 mg DAILY SHRUTI Administration Atorvastatin Calcium 10 mg 10/02/23 21:00 10/03/23 20:25 Atorvastatin 10 Mg Tablet PO 10 mg HS [facility] Administration Calcium Carbonate/Glycine 500 mg 10/03/23 09:00 10/04/23 08:19 Calcium Carbonate Chew 500 Mg Tablet PO 500 mg BID [facility] Administration Cetirizine HCl 10 mg 10/02/23 09:00 10/04/23 08:19 Cetirizine 10 Mg Tablet PO 10 mg DAILY SHRUTI Administration Cholecalciferol 50 mcg 10/03/23 09:00 10/04/23 08:19 Cholecalciferol 25 Mcg Tablet PO 50 mcg DAILY [facility] Administration Docusate Sodium 100 mg 10/02/23 16:35 Docusate Sodium 100 Mg Capsule PO BID PRN Constipation Enoxaparin Sodium 40 mg 10/02/23 17:40 10/04/23 08:19 Enoxaparin 40 Mg/0.4 Ml Syringe SUBQ 40 mg DAILY [facility] Administration Fentanyl 25 mcg 10/02/23 16:35 Fentanyl 250 Mcg/5 Ml Vial IVP Q2HR PRN Severe Breakthrough pain(8-10) Ferrous Gluconate 324 mg 10/03/23 17:00 10/04/23 08:19 Ferrous Gluconate 324 Mg Tablet PO 324 mg DAILYWM [facility] Administration Hydromorphone HCl 0.5 mg 10/02/23 03:16 Hydromorphone 0.5 Mg/0.5 Ml Syringe IVP Q4H PRN Severe Pain (Level 7-10) Hydroxyzine Pamoate 25 mg 10/02/23 07:13 Hydroxyzine Pamoate 25 Mg Capsule PO Q8HR PRN Anxiety Promethazine HCl 12.5 mg/ 50.5 mls @ 100 mls/hr 10/01/23 23:42 10/02/23 00:37 Sodium Chloride IV Infused Q6H PRN Infusion Nausea / Vomiting Potassium Chloride/Sodium Chloride 1,000 mls @ 83 mls/hr 10/02/23 17:00 10/04/23 08:00 Normal Saline 0.9% W/20 Meq Kcl IV 0 mls/hr .Q12H3M SHRUTI Infusion Ondansetron HCl 4 mg 10/01/23 21:35 10/01/23 23:13 Ondansetron 4 Mg/2 Ml Vial IVP 4 mg Q6HR PRN Administration Nausea / Vomiting Ondansetron HCl 4 mg 10/02/23 16:35 Ondansetron Odt 4 Mg Tablet TL Q6HR PRN Nausea / Vomiting Oxycodone HCl 5 mg 10/01/23 21:35 Oxycodone 5 Mg Tablet PO Q4HR PRN Pain 5 to 7 Pantoprazole Sodium 40 mg 10/02/23 07:00 10/04/23 06:10 Pantoprazole 40 Mg Tablet PO 40 mg QDAC SHRUTI Administration Patient Own Med ( 20 each 10/02/23 21:00 10/03/23 21:52 Nortriptyline 20mg) PO Not Given HS SHRUTI Polyethylene Glycol 17 gm 10/03/23 09:00 10/04/23 08:19 Polyethylene Glycol 3350 17 Gm Packet PO 17 gm DAILY SHRUTI Administration Sodium Chloride 10 ml 10/01/23 21:35 Sodium Chloride Flush 0.9% 10 Ml Syringe IVP PRN PRN NEEDED PER PROVIDER ORDERS Sodium Chloride 10 ml 10/02/23 01:00 10/04/23 08:19 Sodium Chloride Flush 0.9% 10 Ml Syringe IVP Not Given 0100,0900,1700 SHRUTI Tamsulosin HCl 0.4 mg 10/02/23 09:00 10/04/23 08:19 Tamsulosin 0.4 Mg Capsule PO 0.4 mg DAILY SHRUTI Administration Trazodone HCl 50 mg 10/02/23 21:00 10/03/23 20:25 Trazodone 50 Mg Tablet PO 50 mg HS SHRUTI Administration Nortriptyline [Pamelor] 20 mg PO HS 02/25/13 Omeprazole 40 mg PO QDAC 02/25/13 Tamsulosin [Flomax] 0.4 mg PO DAILY 12/21/21 allopurinoL [Zyloprim] 100 mg PO DAILY 12/21/21 traZODone [Desyrel] 50 mg PO DAILY 12/21/21 Cetirizine HCl [Allergy] 10 mg PO DAILY 10/01/23 Cyanocobalamin (Vitamin B-12) [Dodex] 1,000 mcg IJ UD 10/01/23 Multivitamin 1 each PO DAILY 10/01/23 Simvastatin [Zocor] 20 mg PO HS 10/01/23 Acetaminophen [Tylenol] 500 mg PO QPM 10/02/23
[2023-10-04 18:38] LABS: BILIRUBIN,URINE NEGATIVE (NEGATIVE); GLUCOSE, URINE (UA) NEGATIVE (NEGATIVE); KETONES,URINE (UA) NEGATIVE (NEGATIVE); LEUKOCYTE ESTERASE, URINE NEGATIVE (NEGATIVE); NITRITE,URINE NEGATIVE (NEGATIVE); OCCULT BLOOD,URINE TRACE-INTA (NEGATIVE); PROTEIN,URINE NEGATIVE (NEGATIVE); UROBILINOGEN,URINE 0.2 (NORMAL) E.U./dL (NORMAL)
[2023-10-04 18:39] LABS: CLARITY,URINE CLEAR (CLEAR)
[2023-10-04 18:53] LABS: BACTERIA,URINE None Seen /HPF (None Seen); RBC,URINE 0-5 /HPF (0-5); SQUAMOUS EPITHELIAL CELL,UR NONE SEEN (<= Few); WBC,URINE 0-3 /HPF (0-3)
--- NOTE | 2023-10-04 19:51 | XRAY Report ---
PROCEDURE: Chest 1V INDICATIONS: fever in postop ortho patient TECHNIQUE: One view of the chest was acquired. COMPARISON: None. FINDINGS: Surgical changes and devices: Left humeral head anchors. Lungs and pleura: No pleural effusions or pneumothorax. Lungs appear clear. Mediastinum: Mediastinal contours appear normal. Heart size is normal. Bones and chest wall: No suspicious bony lesions. Overlying soft tissues appear unremarkable. IMPRESSION: No acute cardiopulmonary process identified. Reviewed by: Sen Worthy MD on 10/04/2023 7:50 PM PDT Approved by: Sen Worthy MD on 10/04/2023 7:50 PM PDT Station ID: [id number]
[2023-10-05 05:34] LABS: BASOPHILS % (AUTO) 0.4 %; EOSINOPHILS # (AUTO) 0.2 10^3/uL (0.0-0.7); HCT - HEMATOCRIT 27.5 % (42.0-52.0); HGB - HEMOGLOBIN 9.2 g/dL (14.0-18.0); LYMPHOCYTES # (AUTO) 1.6 10^3/uL (1.5-3.5); LYMPHOCYTES % (AUTO) 16.1 %; MEAN CORPUSCULAR HEMOGLOBIN 30.5 pg (27.0-31.0); MEAN CORPUSCULAR HGB CONC 33.5 g/dL (32.0-36.0); MEAN CORPUSCULAR VOLUME 91.1 fL (80.0-94.0); MEAN PLATELET VOLUME 9.8 fL (7.4-11.4); MONOCYTES # (AUTO) 1.2 10^3/uL (0.0-1.0); MONOCYTES % (AUTO) 11.5 %; NEUTROPHILS # (AUTO) 7.1 10^3/uL (1.5-6.6); NEUTROPHILS % (AUTO) 69.7 %; PLT - PLATELET COUNT 145 10^3/uL (130-450); RED BLOOD COUNT 3.02 10^6/uL (4.70-6.10); RED CELL DISTRIBUTION WIDTH 12.8 % (12.0-15.0); WHITE BLOOD COUNT 10.1 x10^3/uL (4.8-10.8)
[2023-10-05 05:51] LABS: CALCIUM 8.8 mg/dL (8.5-10.3); CREATININE 1.1 mg/dL (0.6-1.3); POTASSIUM 3.8 mmol/L (3.5-4.5)
[2023-10-05] MEDS: DOCUSATE SODIUM 100 MG CAPSULE PO PRN (08:53)
--- NOTE | 2023-10-05 10:12 | Discharge Plan ---
"Discharge Plan for SNF / [facility] - Discharge Plan And Transition Orders Problem Reviewed?: Yes Disposition: 03 SNF DC/Xfer Condition: Good Allergies and Adverse Reactions: Allergies Allergy/AdvReac Type Severity Reaction Status Date / Time clarithromycin [From Biaxin] Allergy Unknown NAUSEA/DIAR Verified 10/01/23 19:57 [facility] Concerns: The patient is status post surgical repair of hip fracture. Monitor wound for signs of infection. Keep wound clean and dry. Plan of Treatment: The patient will need physical therapy and Occupational Therapy. Evaluate and treat. Care Goals: The patient needs to be able to get up and maintain independence of his ADLs. He needs to be able to safely ambulate with a rolling walker so that his can care for him at home. Assessment: 1. Pathologic left femur fracture due to ground-level fall 2. Mild hospital deliriumimproving 3. Peripheral neuropathy 4. New systolic murmur noted, will need outpatient workup 5. Osteoarthritis 6. Gout 7. Iron deficiency anemia - SNF / GROUP HOME Transition Orders Admit to (Facility): [facility] Discharge Diagnosis: 1. Pathologic left femur fracture due to ground-level fall 2. Mild hospital deliriumimproving 3. Peripheral neuropathy 4. New systolic murmur noted, will need outpatient workup 5. Osteoarthritis 6. Gout 7. Iron deficiency anemia Medicare Certification Statement: I certify that [facility] alf care is medically necessary on a continuing basis for any of the conditions for which she/he is receiving care during hospitalization. Notify PCP of admission and forward orders to primary provider for signature. Weight on admission and: Weekly Call PCP immediately if weight increases by: 2 kg Other Notification Orders: Call PCP immediately if patient develops dyspnea, chest pain/tightness or edema. House Bowel Program: Yes Additional Bowel Program Orders: If no BM after 2 days, nurse may give M.O.M. 30ml PO PRN and/or ducolax Supp 1 PA and/or CHRISTINA 250mg P.O., and/or senna 1-2 tabs PO. On day 3 nurse may give repeat above order until residents constipation is resolved. Annual Influenza Vaccine (between Jan 13 and August 12): Yes Two-step PPD per [facility] [phone] or approved exception documents: Yes Oxygen Orders: N/A Lab Tests or X-ray Orders: CBC, BMP in 1 week Orthopedic Orders: Weight bearing as tolerating Medication Orders: PLEASE REFER TO THE DISCHARGE MEDICATION LIST. Insulin Orders?: No - Medications New Prescriptions: oxyCODONE [Roxicodone] 5 mg PO Q6H PRN #20 tab PRN Reason: Pain 5 to 7 - Diet Type: Geriatric Texture: Regular Liquids: Thin May have monthly special meal: Yes - Therapies | Activity Therapy: Evaluation | Treat if indicated: PT, OT Rehabilitation Potential: Maximize functional status, Return to independent living Activity: Wt Bearing as Tolerated Weight Bearing: Weight bearing as tolerat Assistance Devices: Walker Follow Up: Follow up with orthopedics in 1-2 weeks"
--- NOTE | 2023-10-05 10:44 | DISCHARGE SUMMARY ---
"Discharge Summary Admit Date: 10/01/23 Discharge Date: 10/05/23 Discharging Provider: Lola Bowman PA-C Primary Care Provider: Emily Basilio Code Status: Attempt Resuscitation Condition at Discharge: Good Discharge Disposition: SNF DC/Xfer Discharge Facility Name: [facility] - DIAGNOSES Admission Diagnoses: 1. Pathologic left femur fracture due to ground-level fall No the patient presented to the emergency room after having a ground-level fall at home. He was found to have a left femur fracture. He was admitted to the hospital and underwent a left hip arthroplasty on 10/02/2023. The patient tolerated the procedure well. He is up working with physical therapy and will be transferred today to subacute rehabilitation. The patient can be weightbearing as tolerated. He will have Tylenol available for mild pain and oxycodone available for moderate to severe pain. He should follow-up with orthopedic surgery in about 1 week. His wound should be kept clean and dry. There are no felipe to remove 2. Mild hospital deliriumimproving The patient had some mild hospital delirium likely due to pain medications and late effects of anesthesia. This has improved dramatically. He will continue his home dose of trazodone and nortriptyline at night to help with sleep 3. Peripheral neuropathy This is idiopathic in nature. He will continue nortriptyline at night. 4. New systolic murmur noted, will need outpatient workup He has a new murmur noted on exam. When he gets out of rehab will defer to his primary care physician as to whether he needs further workup 5. Osteoarthritis Quiescent. He has Tylenol and oxycodone available for pain 6. Gout Continue allopurinol 7. Acute blood loss anemia; Iron deficiency anemia The patient had a greater than 2 g drop in hemoglobin. This is likely due to acute blood loss from his surgical procedure as well as hemodilution. He also is iron deficient and will continue iron supplementation 8. BPH Continue Flomax 0.4 mg daily - HPI History of Present Illness: From the admission H&P: Mr. Painting is an 82 you gentleman with history of hyperlipidemia, idiopathic lower extremity neuropathy, gait imbalance. He presented for evaluation of left hip pain after a ground level fall. He denied any precipitating events, lightheadedness,dizziness. He just lost his balance and fell. He has had increasing falls over the past six months which he contributes to his neuropathy. He explained the etiology of his neuropathy is unknown. He follows with PT and Neurology. In the ED workup revealed Left femoral neck fracture. orthopedic surgery was consulted and agreed to see patient. My service was asked to admit for observation and surgical clearance. I performed this visit using real-time tele-health tools, including face to face evaluation with live video. patient's consent was obtained. - CONSULTS | PROCEDURES Consultations: Orthopedic surgery; Dr Quinten Young Procedures: Left hip hemiathroplasty - HOSPITAL COURSE Hospital Course: The patient is an 82-year-old gentleman who presented to the emergency room after having a ground-level fall at home. He has a history of idiopathic neuropathy and balance problems and does not have good sensation to his feet. In the emergency room he was found to have a left femoral neck fracture. Orthopedic surgery evaluated the patient and he underwent surgical repair with a left hemiarthroplasty on 10/02/2023. The patient tolerated the procedure well. His diet has been advanced and he is working with physical therapy and his pain is adequately controlled. He did have a brief episode of hospital delirium which seems to have cleared. At this point he is stable to be transferred to a skilled facility to complete his rehabilitation and will be discharged today in stable condition. - ALLERGIES Allergies/Adverse Reactions: Allergies Allergy/AdvReac Type Severity Reaction Status Date / Time clarithromycin [From Biaxin] Allergy Unknown NAUSEA/DIAR Verified 10/01/23 19:57 [facility] - MEDICATIONS Home Medications: Ambulatory Orders Medication Instructions Recorded Confirmed Nortriptyline [Pamelor] 20 mg PO HS 02/25/13 10/02/23 Omeprazole 40 mg PO QDAC 02/25/13 10/02/23 Tamsulosin [Flomax] 0.4 mg PO DAILY 12/21/21 10/02/23 allopurinoL [Zyloprim] 100 mg PO DAILY 12/21/21 10/02/23 Cetirizine HCl [Allergy] 10 mg PO DAILY 10/01/23 10/02/23 Multivitamin 1 each PO DAILY 10/01/23 10/02/23 Simvastatin [Zocor] 20 mg PO HS 10/01/23 10/02/23 Acetaminophen [Tylenol] 650 mg PO Q4HR PRN tab 10/05/23 Ascorbic Acid [Vitamin C] 500 mg PO DAILY tab 10/05/23 Calcium Carbonate [Tums (Calcium 500 mg PO BID tab 10/05/23 Carbonate 500mg)] Cholecalciferol [Vitamin D3] 50 mcg PO DAILY tab 10/05/23 Docusate Sodium 100Mg Capsule 100 mg PO BID PRN cap 10/05/23 [Colace 100Mg Capsule] Ferrous Gluconate [Fergon] 324 mg PO DAILYWM tab 10/05/23 hydrOXYzine PAMOATE [Vistaril] 25 mg PO Q8HR PRN cap 10/05/23 oxyCODONE [Roxicodone] 5 mg PO Q6H PRN #20 tab 10/05/23 polyethylene glycoL 3350 [Miralax] 17 gm PO DAILY packet 10/05/23 traZODone [Desyrel] 50 mg PO HS #30 tab 10/05/23 10/02/23 - PHYSICAL EXAM AT DISCHARGE General Appearance: positive: No acute distress, Alert Eyes Bilateral: positive: Normal inspection ENT: positive: ENT inspection nml Neck: positive: Nml inspection Respiratory: positive: No respiratory distress, Breath sounds nml. negative: Wheezes, Rales, Rhonchi Cardiovascular: positive: Regular rate & rhythm, No gallop, Systolic murmur Peripheral Pulses: positive: 1+ Abdomen: positive: Non-tender, No organomegaly, Nml bowel sounds, No distention Skin: positive: Color nml, Warm. negative: No rash (No erythema or drainage from surgical wound.) Extremities: positive: Nml appearance, Other Neurologic/Psychiatric: positive: Oriented x3, Mood/affect nml - LABS Result Diagrams: 10/05/23 05:02 10/05/23 05:02 - DIAGNOSTIC IMAGING Diagnostic Imaging Results: Final report reviewed - SEPSIS Current Stage of Sepsis: Ruled out - QUALITY (Female Hip Fx Only) Was patient sent home on osteoporosis medication?: Yes - FOLLOW UP Follow Up: Follow up with staff MD in 1 week, He should follow up with orthopedics in 1-2 weeks"
[2023-10-05 14:30] VITALS: BP 113/63; O2SAT 95
== END 2023-10-05 15:17 | DRG 522 ==
LOC: EDUNIT# → ED 19:52 → MS2 21:35 → OBSVTOIN 10-02 10:13
PROVIDERS: ADMIT Hospitalist; ATTEND Physician Assistant
PROC: 0SRS0J9 Replacement of Left Hip Joint, Femoral Surface with Synthetic Substitute, Cemented, Open Approach (ICD-10-PCS; principal; 2023-10-02 13:30)
DX: M80.052A Age-related osteoporosis with current pathological fracture, left femur, initial encounter for fracture (principal); S72.012A Unspecified intracapsular fracture of left femur, initial encounter for closed fracture; D62 Acute posthemorrhagic anemia; I45.2 Bifascicular block; E78.5 Hyperlipidemia, unspecified; R41.0 Disorientation, unspecified; R01.1 Cardiac murmur, unspecified; M19.90 Unspecified osteoarthritis, unspecified site; I45.10 Unspecified right bundle-branch block; I44.60 Unspecified fascicular block; W01.0XXA Fall on same level from slipping, tripping and stumbling without subsequent striking against object, initial encounter; Z91.81 History of falling; Y92.009 Unspecified place in unspecified non-institutional (private) residence as the place of occurrence of the external cause; Z87.891 Personal history of nicotine dependence; E78.00 Pure hypercholesterolemia, unspecified; G60.9 Hereditary and idiopathic neuropathy, unspecified; M10.9 Gout, unspecified; N40.1 Benign prostatic hyperplasia with lower urinary tract symptoms; N39.498 Other specified urinary incontinence; R26.89 Other abnormalities of gait and mobility; R33.8 Other retention of urine; K21.9 Gastro-esophageal reflux disease without esophagitis; D50.8 Other iron deficiency anemias
CPT/HCPCS: 36415; 71045; 72170; 73130; 73502; 80048; 80053; 81001; 83690; 83880; 85025; 85610; 87040; 93005; 93307; 96365; 96375; 96376; 97162; 97530; 99285; A9270; G0378; J1170; J1650; J3370; J3490; J7120; 87086

== ENCOUNTER 2023-10-05 15:20 | Outpatient (CLI) | payer MEDICARE | END 2023-10-05 23:59 | LOC: EMS 15:20 | PROVIDERS: ATTEND Physician Assistant | DX: S72.002A Fracture of unspecified part of neck of left femur, initial encounter for closed fracture (principal); W18.30XA Fall on same level, unspecified, initial encounter; Z74.01 Bed confinement status | CPT/HCPCS: A0425; A0428 ==

== ENCOUNTER 2023-11-13 12:59 | Outpatient (CLI) | payer MEDICARE ==
--- NOTE | 2023-11-13 23:26 | XRAY Report ---
PROCEDURE: Hip w/Pelvis 2-3V LT INDICATIONS: INTRACAPSULAR FRACTURE OF LEFT FEMUR TECHNIQUE: 3 views of the hip were acquired. COMPARISON: Pelvic radiographs 10/02/2023. FINDINGS: Bones: Left hip arthroplasty. Arthroplasty projects in expected location. No periprosthetic lucency to suggest loosening or infection. No fractures or dislocations. No suspicious bony lesions. Moder ate degenerative changes at the right hip. Soft tissues: No suspicious soft tissue calcifications or masses. IMPRESSION: Stable appearance of the left hip arthroplasty. Reviewed by: Sen Worthy MD on 11/13/2023 11:24 PM PDT Approved by: Sen Worthy MD on 11/13/2023 11:24 PM PDT Station ID: [id number]
== END 2023-11-13 13:00 | disposition home or self-care (01) ==
LOC: DI 12:59
PROVIDERS: ATTEND Orthopaedic Surgery
DX: S72.012D Unspecified intracapsular fracture of left femur, subsequent encounter for closed fracture with routine healing (principal); Z96.642 Presence of left artificial hip joint